=== PATIENT | female | born 1950 | race Caucasian/White ===

== ENCOUNTER → 2018-05-31 08:29 | Outpatient (CLI) | payer OTHER, SELFPAY ==
[2018-05-31 09:05] LABS: Add Manual Diff / Slide Review NO; Basophils Percent Auto 1.3 % (0-2); Eosinophils Percent Auto 2.1 % (2-4); Hematocrit 40.8 % (36-46); Hemoglobin 13.7 g/dL (12.0-16.0); Lymphocytes Percent Auto 40.6 % (25-40); Mean Corpuscular HGB Conc 33.6 % (30-36); Mean Corpuscular Hemoglobin 30.7 PG (26-34); Mean Corpuscular Volume 91.3 fL (80-100); Monocytes Percent Auto 10.8 % (3-14); Neutrophils Absolute Auto 1200 /uL (3000-5900); Neutrophils Percent Auto 45.2 % (50-75); Platelet Count 118 X10^3/uL (150-400); Red Blood Cell Count 4.47 X10^6/uL (4.0-5.2); Red Cell Distribution Width 12.7 % (11.6-14.8); White Blood Cell Count 2.7 X10^3/uL (4.5-11.0)
[2018-05-31 09:39] LABS: Alanine Aminotransferase 48 IU/L (9-52); Albumin 4.1 g/dL (3.5-5.0); Albumin Globulin Ratio 1.3 (1.0-2.8); Alkaline Phosphatase 60 U/L (38-126); Aspartate Aminotransferase 37 IU/L (14-36); BUN Creatinine Ratio 22.9 (6-22); Bilirubin Total 0.6 mg/dL (0.2-1.3); Blood Urea Nitrogen 16 mg/dL (7-17); Calcium 9.4 mg/dL (8.4-10.2); Carbon Dioxide 31 mmol/L (22-32); Chloride 103 mmol/L (98-107); Cholesterol 163 mg/dL (140-199); Estimated Glomerular Filt Rate > 60.0 mL/min (>60); Globulin 3.1 g/dL (1.7-4.1); Glucose 92 mg/dL (80-110); HDL Cholesterol 62 mg/dL (40-60); HEMOLYSIS < 15 (0-50); LDL Cholesterol Calculated 87 mg/dL (<100); Potassium 4.1 mmol/L (3.4-5.1); Sodium 142 mmol/L (137-145); Total Protein 7.2 g/dL (6.3-8.2); Triglycerides 69 mg/dL (35-150)
[2018-05-31 11:03] LABS: TSH w/ Reflex to FT4 2.33 uIU/mL (0.47-4.68)
== END ==
PROVIDERS: Family Provider Internal Medicine; PCP Internal Medicine; Visit Provider Internal Medicine
DX: E03.9 Hypothyroidism, unspecified (principal)
CPT/HCPCS: 36415; 80053; 80061; 84443; 85025

== ENCOUNTER → 2018-06-16 07:21 | Outpatient (CLI) | payer OTHER, SELFPAY ==
[2018-06-18 17:58] LABS: Fecal Immunochemical Test NOT DETECTED
== END ==
PROVIDERS: PCP Internal Medicine; Visit Provider Internal Medicine
DX: Z12.11 Encounter for screening for malignant neoplasm of colon (principal)
CPT/HCPCS: 82274

== ENCOUNTER → 2018-07-18 07:48 | Outpatient (CLI) | payer OTHER, SELFPAY ==
--- NOTE | 2018-07-18 | DI.MG.S_ITS ---
BILATERAL DIGITAL SCREENING MAMMOGRAM 3D/2D WITH CAD: 07/18/2018 CLINICAL: Routine screening. Family history of breast cancer. Comparison is made to exams dated: 07/12/2017 mammogram, 06/29/2016 mammogram, and 05/06/2015 mammogram - . The tissue of both breasts is heterogeneously dense. This may lower the sensitivity of mammography. Current study was also evaluated with a Computer Aided Detection (CAD) system. There is a 0.4 cm oval equal density asymmetry with a circumscribed margin in the left breast middle depth central to the nipple seen on the craniocaudal view only. No other significant masses, calcifications, or other findings are seen in either breast. IMPRESSION: INCOMPLETE: NEEDS ADDITIONAL IMAGING EVALUATION The 0.4 cm oval equal density asymmetry in the left breast is indeterminate. Mediolateral and spot compression views as well as additional views with possible ultrasound are recommended. This exam was interpreted at Station ID: [id number]. NOTE: For mammograms, a report in lay terms will be sent to the patient. Approximately 15% of breast malignancies will not be visualized mammographically. In the management of a palpable breast mass, a negative mammogram must not discourage biopsy of a clinically suspicious lesion. Electronically Signed By: Paco juarez/reji:07/18/2018 16:24:33 letter sent: Additional Imaging Needed ACR BI-RADS Category 0: Incomplete 3340F
== END ==
PROVIDERS: Family Provider Internal Medicine; PCP Internal Medicine; Visit Provider Internal Medicine
DX: Z12.31 Encounter for screening mammogram for malignant neoplasm of breast (principal); Z80.3 Family history of malignant neoplasm of breast
CPT/HCPCS: 77063; 77067

== ENCOUNTER → 2018-08-08 09:56 | Outpatient (CLI) | payer OTHER, SELFPAY ==
--- NOTE | 2018-08-08 09:58 | DI.US.S_ITS ---
ULTRASOUND OF LEFT BREAST: 08/08/2018 CLINICAL: Patient returns for additional imaging over a suspected mass in the left breast. Comparison is made to exams dated: 08/08/2018 mammogram, 07/18/2018 mammogram, and 07/12/2017 mammogram - [facility]. Real-time and Doppler ultrasound of the left breast central to the nipple and along the 6 and 12 o'clock radians were performed. Gardiner scale images of the real-time examination were reviewed. No underlying breast mass or abnormality is identified. No ultrasound correlate for the 0.4 cm oval equal density asymmetry with a circumscribed margin in the left breast central to the nipple on comparison screening and diagnostic mammograms. IMPRESSION: PROBABLY BENIGN - FOLLOW-UP RECOMMENDED No ultrasound correlate for the 0.4 cm oval equal density asymmetry with a circumscribed margin in the left breast central to the nipple on comparison screening and diagnostic mammograms. A follow-up mammogram in 6 months is recommended to demonstrate stability. This exam was interpreted at Station ID: [id number]. Electronically Signed By: Sukhi Patel M.D. ecl/:08/08/2018 18:54:55 letter sent: Followup Recommended Ultrasound BI-RADS: 3 Probably benign
--- NOTE | 2018-08-08 09:58 | DI.MG.S_ITS ---
UNILATERAL LEFT DIGITAL DIAGNOSTIC MAMMOGRAM 3D/2D WITH ADDITIONAL VIEWS: 08/08/2018 CLINICAL: Additional evaluation requested from prior study. Family history of breast cancer. Comparison is made to exams dated: 07/18/2018 mammogram, 07/12/2017 mammogram, and 06/29/2016 mammogram - [facility]. The tissue of the left breast is heterogeneously dense. This may lower the sensitivity of mammography. Previously identified 0.4 cm oval equal density asymmetry with a circumscribed margin in the left breast middle depth central to the nipple on comparison screening mammograms persists with additional views. No other significant masses, calcifications, or other findings are seen in the breast. IMPRESSION: INCOMPLETE: NEEDS ADDITIONAL IMAGING EVALUATION Previously identified 0.4 cm oval equal density asymmetry with a circumscribed margin in the left breast middle depth central to the nipple on comparison screening mammograms persists with additional views. A targeted ultrasound is recommended for further evaluation, and will be performed immediately following this exam. This exam was interpreted at Station ID: [id number]. NOTE: For mammograms, a report in lay terms will be sent to the patient. Approximately 15% of breast malignancies will not be visualized mammographically. In the management of a palpable breast mass, a negative mammogram must not discourage biopsy of a clinically suspicious lesion. Electronically Signed By: Sukhi Patel M.D. ecl/:08/08/2018 18:51:37 letter sent: Additional Imaging Needed ACR BI-RADS Category 0: Incomplete 3340F
== END ==
PROVIDERS: Family Provider Internal Medicine; PCP Internal Medicine; Visit Provider Internal Medicine
DX: R92.8 Other abnormal and inconclusive findings on diagnostic imaging of breast (principal); Z80.3 Family history of malignant neoplasm of breast
CPT/HCPCS: 76642; 77065; G0279

== ENCOUNTER → 2018-09-02 12:36 | Outpatient (CLI) | payer OTHER, SELFPAY ==
[2018-09-02 13:28] LABS: Mean Corpuscular HGB Conc 34.3 % (30-36); Mean Corpuscular Hemoglobin 30.9 PG (26-34); Mean Corpuscular Volume 90.3 fL (80-100); Platelet Count 130 X10^3/uL (150-400); Red Blood Cell Count 4.54 X10^6/uL (4.0-5.2); Red Cell Distribution Width 12.8 % (11.6-14.8)
[2018-09-02 16:19] LABS: Neutrophils Absolute Manual 1880 /uL (3000-5900); Total Cells Counted 100
[2018-09-02 16:20] LABS: Smudge Cells 1+
[2018-09-02 16:21] LABS: RBC Morphology Normal Morphology
[2018-09-04 21:15] LABS: Albumin 4.2 g/dL (3.8-4.8); Alpha 1 Globulin 0.3 g/dL (0.2-0.3); Alpha 2 Globulin 0.6 g/dL (0.5-0.9); Beta 1 Globulin 0.4 g/dL (0.4-0.6); Gamma Globulin 1.1 g/dL (0.8-1.7)
[2018-09-05 16:16] LABS: Albumin 100 %; Protein/ Creatinine Ratio 106 mg/g creat (21-161); Total Urine Protein 4 mg/dL (5-24); Urine Creatinine, Random 38 mg/dL (20-275)
== END ==
PROVIDERS: PCP Internal Medicine; Visit Provider Internal Medicine
DX: D69.6 Thrombocytopenia, unspecified (principal); D70.9 Neutropenia, unspecified
CPT/HCPCS: 36415; 83002; 84155; 84156; 84165; 84166; 85025

== ENCOUNTER → 2018-09-24 15:10 | Oncology outpatient (ONC) | payer OTHER, SELFPAY ==
[2018-09-24 15:53] VITALS: BP 152/73; PULSE 67; RESP 18; TEMP 36.7; O2SAT 100
--- NOTE | 2018-09-24 16:11 | ONC.CONS ---
History of Present Illness - Data of Consult Consult date: 09/24/18 Primary Care Provider: JUVENAL Campos - Consult Narrative Narrative: Keeley Godoy is a 67 year old female who is referred for further evaluation of chronic leukopenia and thrombocytopenia. She reports that she has been feeling quite well. She has no specific complaints today. She has not had any trouble with recurrent infections. She denies any fevers chills or sweats. No unusual bleeding. She has had easy bruising her whole life and this has been stable. She notes her strength and energy level have been good. She denies any dyspnea. No dizziness or lightheadedness. No palpitations. She has never required any transfusion. She has no family history of blood dyscrasias. She has had mild of leukopenia dating back at least as far as 2005. At that time her white count was 2.8 hemoglobin is 14.3 and platelets [id number]. Over the ensuing years, her platelet count has generally run between 120 180. She also has had chronic leukopenia with a count ranging from about 2.5 up to about 4000. She has never had any anemia. She was evaluated by Hematology back in 2011. She underwent extensive evaluation including a bone marrow biopsy that did not show any intrinsic hematologic abnormality. Her current medications include thyroid replacement and estrogen. She takes multiple supplements. For Past medical history is only notable for hypothyroidism. Family history is negative for any blood dyscrasias or cytopenias. She did have an aunts with lung cancer who was a smoker. She does have a family history of breast cancer. There is no other family history of malignancy. Social history: She is recently . She does not smoke. She has about 1 drink per week. 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 CC: Addy Alba MD Home Medications and Allergies Home Medications Medication Instructions Recorded Confirmed Type CALCIUM/MAG/CITRATE/D 1 tab PO .QD #0 06/10/18 06/10/18 History CHOLECALCIFEROL (VITAMIN D) 2,000 iu PO .QD #0 06/10/18 09/23/18 History MULTIVITAMIN (Multiple Vitamins 1 tab PO Q DAY #0 06/10/18 09/23/18 History Daily) [BIOTIN] 1,000 mcg PO .QD #0 06/10/18 09/23/18 History selenium 100 mcg tablet 100 mcg PO DAILY 06/10/18 06/10/18 History vitamin B complex capsule 1 cap PO DAILY 06/10/18 09/23/18 History thyroid (pork) [[place] Thyroid] 30 mg PO QDAY #90 tab 06/12/18 Rx diclofenac sodium 75 mg 75 mg PO BID #90 tab 06/16/18 Rx tablet,delayed release [estriol 1mg ] See Label Instructions .ROUTE 2XW 08/27/18 09/23/18 Rx #30 ea glucosamine sulfate PO 09/23/18 09/23/18 History Allergies Allergy/AdvReac Type Severity Reaction Status Date / Time amoxicillin Allergy Mild GI UPSET Unverified 06/10/18 09:01 Medical History - Medical, Surgical, Family History Medical History: Medical History (Last Reviewed 09/23/18 @ 11:36 by Isaura Huang MD) Foot pain Onset Date: ~2011 Hay fever Hypothyroidism Neutropenia Chicken pox Surgical History: Surgical History (Last Reviewed 09/23/18 @ 11:36 by Isaura Huang MD) Anesthesia Status post colonoscopy Onset Date: ~2004 Family History: Family History (Last Reviewed 09/23/18 @ 11:36 by Isaura Huang MD) Father Suicide Alcoholism Mother Breast cancer Diabetes mellitus, Onset Age: 82 Hypertension Breast cancer metastasized to bone Breast cancer metastasized to lung Osteoporosis Family/Other Breast cancer - Social History Smoking Status: Former smoker (QUIT 12/02/79) Alcohol Intake Frequency: a few times a month Housing: house Household Members: spouse Review of Systems Constitutional: normal activity level, no weight loss Cardiovascular: no chest pain, no palpitations, no dyspnea on exertion Respiratory: no shortness of breath, no exercise intolerance Gastrointestinal: no change in appetite, no abdominal pain Neurological: no paresthesias Hematologic/Lymphatic: no enlarged lymph nodes Exam - Constitutional positive no acute distress, positive average body habitus - Routine HEENT Exam Head: Present: normocephalic, atraumatic Eye: Present: EOMI, PERRL. Absent: conjunctival icterus, scleral injection ENT: Present: mucous membranes moist, oropharynx clear - Routine Neck Exam Present: supple. Absent: lymphadenopathy, thyromegaly - Routine Respiratory Exam Present: Clear to auscultation bilaterally. Absent: rales, wheezes - Routine Cardiovascular Exam Present: RRR, S1, S2. Absent: murmur - Routine Abdominal Exam Present: soft, normoactive bowel sounds. Absent: tenderness, organomegaly, mass - Routine Extremities Exam Absent: cyanosis, clubbing, edema - Routine Back/Spine Exam Back/Spine: Absent: paraspinal tenderness, vertebral tenderness - Routine Skin Exam Present: intact. Absent: petechiae, rash, ecchymosis - Routine Neurological Exam Present: alert, oriented X3. Absent: sensory deficit - Routine Psychiatric Exam Present: normal affect, normal thought process Assessment and Plan (1) Thrombocytopenia Current visit: No Status: Chronic 67-year-old woman with a longstanding history of moderate leukopenia and thrombocytopenia that is been stable for approximately 10 years or more. She has no symptoms attributable to this. She has undergone of fairly extensive evaluation about 5 years ago including a bone marrow biopsy with no abnormalities detected. Since then, there really has not been any significant change in her counts or in her overall health. She is not on any medications likely to cause low blood counts. There is no history of hypersplenism or liver disease. She really has minimal alcohol intake. I think it would be reasonable to check a B12 level as she does follow mostly vegetarian diet. Otherwise, I do not think an extensive evaluation is likely to yield any significant new findings. Will have her return to clinic in about 1 year for follow-up just to monitor her counts.
== END ==
PROVIDERS: Family Provider Internal Medicine; PCP Internal Medicine
DX: D69.6 Thrombocytopenia, unspecified (principal); D72.819 Decreased white blood cell count, unspecified; Z80.3 Family history of malignant neoplasm of breast; Z87.891 Personal history of nicotine dependence
CPT/HCPCS: 99204; 99214

== ENCOUNTER → 2018-09-25 12:34 | Outpatient (CLI) | payer OTHER, SELFPAY ==
[2018-09-25 12:47] LABS: Add Manual Diff / Slide Review NO; Basophils Percent Auto 0.8 % (0-2); Eosinophils Percent Auto 2.6 % (2-4); Hematocrit 41.6 % (36-46); Hemoglobin 13.9 g/dL (12.0-16.0); Lymphocytes Percent Auto 29.4 % (25-40); Mean Corpuscular HGB Conc 33.5 % (30-36); Mean Corpuscular Hemoglobin 30.4 PG (26-34); Mean Corpuscular Volume 90.9 fL (80-100); Monocytes Percent Auto 9.8 % (3-14); Neutrophils Absolute Auto 2000 /uL (3000-5900); Neutrophils Percent Auto 57.4 % (50-75); Platelet Count 132 X10^3/uL (150-400); Red Blood Cell Count 4.57 X10^6/uL (4.0-5.2); White Blood Cell Count 3.5 X10^3/uL (4.5-11.0)
[2018-09-25 14:24] LABS: Folate > 20.0 ng/mL (2.76-20.0); Vitamin B12 868 pg/mL (239-931)
== END ==
PROVIDERS: Family Provider Internal Medicine; PCP Internal Medicine
DX: D72.819 Decreased white blood cell count, unspecified (principal); D69.6 Thrombocytopenia, unspecified
CPT/HCPCS: 36415; 82607; 82746; 85025

== ENCOUNTER → 2019-02-24 08:29 | Outpatient (CLI) | payer MEDICARE, OTHER, SELFPAY ==
--- NOTE | 2019-02-24 08:34 | DI.MG.S_ITS ---
UNILATERAL LEFT DIGITAL DIAGNOSTIC MAMMOGRAM 3D/2D: 02/24/2019 CLINICAL: Patient returns for a 6 month follow up of the left breast. Family history of breast cancer. Comparison is made to exams dated: 08/08/2018 mammogram, 07/18/2018 mammogram, and 07/12/2017 mammogram - [facility]. The tissue of left breast is heterogeneously dense. This may lower the sensitivity of mammography. There is a stable 0.4 cm oval low density asymmetry with an indistinct margin in the left breast middle depth central to the nipple seen on the craniocaudal view only. No other significant masses or calcifications are seen in the breast. IMPRESSION: PROBABLY BENIGN The stable 0.4 cm oval low density asymmetry in the left breast is probably benign. A follow-up in 6 months is recommended. A follow-up mammogram in 6 months is recommended to demonstrate stability. This exam was interpreted at Station ID: [id number]. NOTE: For mammograms, a report in lay terms will be sent to the patient. Approximately 15% of breast malignancies will not be visualized mammographically. In the management of a palpable breast mass, a negative mammogram must not discourage biopsy of a clinically suspicious lesion. Electronically Signed By: Paco juarez/reji:02/24/2019 09:30:51 letter sent: Followup Recommended ACR BI-RADS Category 3: Probably benign 3343F
== END ==
PROVIDERS: PCP Internal Medicine; Visit Provider Internal Medicine
DX: R92.8 Other abnormal and inconclusive findings on diagnostic imaging of breast (principal); N64.89 Other specified disorders of breast; Z80.3 Family history of malignant neoplasm of breast
CPT/HCPCS: 77065; G0279

== ENCOUNTER → 2019-08-31 08:35 | Outpatient (CLI) | payer MEDICARE, OTHER, SELFPAY ==
--- NOTE | 2019-08-31 | DI.MG.S_ITS ---
BILATERAL DIGITAL DIAGNOSTIC MAMMOGRAM 3D/2D SHORT-TERM FOLLOW-UP: 08/31/2019 CLINICAL: Patient returns for a 6 month follow up of the left breast. Due for bilateral imaging. Comparison is made to exams dated: 02/24/2019 mammogram, 08/08/2018 mammogram, 07/18/2018 mammogram, 07/12/2017 mammogram, and 06/29/2016 mammogram - [facility]. The tissue of both breasts is heterogeneously dense. This may lower the sensitivity of mammography. There is a stable benign 0.4 cm oval low density asymmetry with a smooth margin in the left breast middle depth central to the nipple seen on the craniocaudal view only. No other significant masses, calcifications, or other findings are seen in either breast. IMPRESSION: Oval asymmetry in the left breast is stable. There is no mammographic evidence of malignancy. Return to annual mammogram screening schedule is recommended. Findings and recommendations were conveyed to the patient at time of exam. This exam was interpreted at Station ID: [id number]. NOTE: For mammograms, a report in lay terms will be sent to the patient. Approximately 15% of breast malignancies will not be visualized mammographically. In the management of a palpable breast mass, a negative mammogram must not discourage biopsy of a clinically suspicious lesion. Electronically Signed By: Maggy farr/:08/31/2019 09:22:04 letter sent: Normal Exam ACR BI-RADS Category 2: Benign Finding(s) 3342F
== END ==
PROVIDERS: PCP Internal Medicine; Visit Provider Internal Medicine
DX: R92.8 Other abnormal and inconclusive findings on diagnostic imaging of breast (principal); N64.89 Other specified disorders of breast; M85.88 Other specified disorders of bone density and structure, other site; E07.9 Disorder of thyroid, unspecified; Z82.62 Family history of osteoporosis
CPT/HCPCS: 77066; 77080; G0279

== ENCOUNTER 2020-01-29 11:48 | Day surgery (SDC) | payer MEDICARE, OTHER, SELFPAY ==
[2020-01-29] VITALS (7 sets, daily range): BP systolic 106–149; BP diastolic 59–90; PULSE 61–81; RESP 11–28; TEMP 35.7–36.4; O2SAT 94–100; BMI 24.0
--- NOTE | 2020-01-29 08:07 | P.HP_ITS ---
History of Present Illness History of Present Illness Date Patient Seen: 01/29/20 Time Patient Seen: 13:09 Chief complaint: [id number] Narrative: 69 year old female comes in today for consideration of a screening colonoscopy. FIT test negative on 06/16/2018. She has had 2 or 3 lifetime colonoscopies. She did have a colon polyp after her 1st colonoscopy that was followed closely 6 months later showing no regrowth. Her last colonoscopy was in 2004 and was normal, records not available at of dictation. Station. There have been no lower GI symptoms suggesting disease such as change in bowel habits, bleeding, abdominal pain or anemia. There's been no family history of colon cancer or colon polyps. Overall health issues have been stable, including no major cardiac events for at least 6 weeks. PCP: JUVENAL Campos Past medical history: Osteopenia Hay fever Neutropenia Hypothyroidism History of left breast mass Past surgical history: Colonoscopy, 2004 Family history: Father, from suicide at age 58, alcohol substance abuse. Mother at age 86 from breast cancer that metastasized to bone and lung, diabetes mellitus type 2, hypertension, osteoporosis Social history: , retired paralegal assistant. Patient History Family & Social History Social History: household members spouse Tobacco & Substance use: Smoking Status Former smoker alcohol intake current alcohol intake frequency a few times a month Meds Home Medications and Allergies Home Medications Medication Instructions Recorded Confirmed Type CALCIUM/MAG/CITRATE/D 1 tab PO .QD #0 06/10/18 01/29/20 History CHOLECALCIFEROL (VITAMIN D) 2,000 iu PO .QD #0 06/10/18 01/29/20 History MULTIVITAMIN (Multiple Vitamins 1 tab PO Q DAY #0 06/10/18 01/29/20 History Daily) [BIOTIN] 1,000 mcg PO .QD #0 06/10/18 01/29/20 History selenium 100 mcg tablet 100 mcg PO DAILY 06/10/18 01/29/20 History vitamin B complex 1 cap PO DAILY 06/10/18 01/29/20 History thyroid (pork) [[place] Thyroid] 30 mg PO QDAY #90 tab 06/12/18 01/29/20 Rx diclofenac sodium 75 mg 75 mg PO BID #90 tab 06/16/18 01/29/20 Rx tablet,delayed release glucosamine sulfate PO 09/23/18 09/23/18 History Allergies Allergy/AdvReac Type Severity Reaction Status Date / Time amoxicillin Allergy Mild GI UPSET Unverified 06/10/18 09:01 Review of Systems Review of Systems ROS: Yes All systems reviewed with the patient and are negative except as otherwise documented Exam Narrative Exam Narrative: GENERAL: Alert and oriented, appearing stated age and in no acute distress. HEENT: Head normocephalic/atraumatic. LUNGS: Clear to ausculation bilaterally, no wheezes, rhonchi or rales. CV: Normal S1 and S2 with regular rate and rhythm, no audible murmurs, rubs or gallops. ABDOMEN: Soft, non-tender, non-distended, no organomegaly. Positive bowel sounds. EXTREMITIES: No clubbing, cyanosis, or edema. NEURO: Cranial nerves II through XII grossly intact, no focal deficits. PSYCH: Alert and oriented x 3. SKIN: No concerning lesions. Assessment & Plan Assessment & Plan narrative: 1. History of colon polyps 2. Screening for colon cancer Plan for colonoscopy. The nature and character of the procedure as well as anticipated results were discussed. The possibility of not completing the procedure was also discussed. Possible complications including aspiration pneumonia, bleeding, perforation and reaction to medications either for sedation or preparation and missed lesions were discussed. Questions were answered and proceeding to the colonoscopy was elected. Informed consent signed. I sincerely appreciate the referral allowing me to participate in this patient's care. Please contact me with any questions or concerns.
--- NOTE | 2020-01-29 08:16 | PM.OP.ENDO ---
Operative Date/Time/Diagnoses Date of procedure: 01/29/20 Time of procedure: 13:15 Pre-op diagnosis: 1. History of colon polyps 2. Screening for colon cancer Post-op diagnosis: other (Normal sigmoidoscopy) Procedure & Clinicians Study performed: Sigmoidoscopy Same procedure as scheduled: No (Colonoscopy converted to sigmoidoscopy secondary to tortuosity of colon) Indications: 1. History of colon polyps 2. Screening for colon cancer Surgeon: Christin Mercado Procedure Notes SCOAP/Timeout: 13:15 Procedure in detail: ENDOSCOPIST: Christin Mercado MD Sedation RN: Sloan Chris RN Sedation start time: 1:15 p.m. Sedation end time: 1:50 p.m. PROCEDURE: Sigmoidoscopy INDICATIONS: 1. History of colon polyps 2. Screening for colon cancer MEDICATION: Levsin 0.125 mg sublingual, incremental doses of Versed and fentanyl until appropriate level sedation achieved. ASA CLASS: 2 COMPLICATIONS: None. EXTENT OF PROCEDURE: Splenic flexure. QUALITY OF PREP: Good with portions of liquid stool. PROCEDURE: Prior to insertion of the colonoscope, a digital rectal examination was accomplished with circumferential palpation of the distal rectal mucosa without significant findings being noted. The high-definition adult colonoscope was passed into the rectum in the usual fashion and advanced over to the splenic flexure without difficulty. At the splenic flexure, there was a tight junction that was unable to be intubated. Patient was transitioned through several position changes from supine to right lateral decubitus and back again to left lateral decubitus, scope was not able to be advanced. Gentle pressure was applied to the abdomen and the scope was still not able to be advanced. Adult colonoscope was then removed and replaced with a pediatric colonoscope, again the pediatric colonoscope could not advanced past the splenic flexure; procedure converted to sigmoidoscopy. DESCENDING COLON: Normal no polyps, diverticula or other abnormalities. SIGMOID COLON: Normal no polyps, diverticula or other abnormalities. RECTUM: Normal. J maneuver was produced. There was no significant perianal disease. The J maneuver was broken. The remainder of the rectum was inspected and there was no external hemorrhoid disease. The scope was withdrawn. IMPRESSION: 1. Normal sigmoidoscopy PLAN: 1. Patient did reassuringly have a negative FIT test prior to this procedure, may proceed with a 5 year screening interval or elect to proceed with CT colonography in place of an endoscopic exam. The possibility of a missed lesion including a malignancy has been discussed with the patient previously. Potential alarm symptoms have been discussed and should be reported immediately. Sedation minutes: 35 Specimen(s): none sent Complications: none Post-procedure Follow up: as needed Disposition: PACU
[2020-01-29] MEDS: HYOSCYAMINE 0.125 MG TABLET PO (12:38)
[2020-01-29] MEDS: SODIUM CHLORIDE 0.9% 1,000 ML 200 ML IV ×2 (12:41→13:46)
[2020-01-29] MEDS: MIDAZOLAM 5 MG/5 ML VIAL IV (13:56)
[2020-01-29] MEDS: fentaNYL 250 MCG/5 ML INJ IV (13:57)
== END 2020-01-29 15:22 | disposition home or self-care (01) ==
PROVIDERS: PCP Internal Medicine; Referring Provider Internal Medicine; Visit Provider Student in an Organized Health Care Education/Training Program
PROC: 0DJD8ZZ Inspection of Lower Intestinal Tract, Via Natural or Artificial Opening Endoscopic (ICD-10-PCS; CPT 45378; principal; 2020-01-29 13:00)
DX: Z12.11 Encounter for screening for malignant neoplasm of colon (principal); Z86.010 Personal history of colon polyps
CPT/HCPCS: G0104; J2250; J3010

== ENCOUNTER → 2020-10-21 10:05 | Outpatient (CLI) | payer MEDICARE, OTHER, SELFPAY ==
--- NOTE | 2020-10-21 | DI.MG.S_ITS ---
BILATERAL DIGITAL SCREENING MAMMOGRAM 3D/2D WITH CAD: 10/21/2020 CLINICAL: Routine screening. Family history of breast cancer. Comparison is made to exams dated: 08/31/2019 mammogram, 07/18/2018 mammogram, 07/12/2017 mammogram, 05/20/2015 mammogram, and 04/30/2014 mammogram - [facility]. The tissue of both breasts is heterogeneously dense. This may lower the sensitivity of mammography. Current study was also evaluated with a Computer Aided Detection (CAD) system. There is an irregular asymmetry with an indistinct margin in the right breast middle depth inferior region seen on the mediolateral oblique view only. Finding is seen only on tomography. This is more prominent. No other significant masses, calcifications, or other findings are seen in either breast. IMPRESSION: INCOMPLETE: NEEDS ADDITIONAL IMAGING EVALUATION The irregular asymmetry in the right breast is indeterminate. Additional views with possible ultrasound are recommended. This exam was interpreted at Station ID: [id number]. NOTE: For mammograms, a report in lay terms will be sent to the patient. Approximately 15% of breast malignancies will not be visualized mammographically. In the management of a palpable breast mass, a negative mammogram must not discourage biopsy of a clinically suspicious lesion. Electronically Signed By: Maggy farr/reji:10/21/2020 12:42:31 letter sent: Additional Imaging Needed ACR BI-RADS Category 0: Incomplete 3340F
== END ==
PROVIDERS: PCP Internal Medicine; Referring Provider Internal Medicine; Visit Provider Internal Medicine
DX: Z12.31 Encounter for screening mammogram for malignant neoplasm of breast (principal)
CPT/HCPCS: 77063; 77067

== ENCOUNTER → 2020-11-15 13:57 | Outpatient (CLI) | payer MEDICARE, OTHER, SELFPAY ==
--- NOTE | 2020-11-15 | DI.MG.S_ITS ---
UNILATERAL RIGHT DIGITAL DIAGNOSTIC MAMMOGRAM 3D/2D WITH ADDITIONAL VIEWS: 11/15/2020 CLINICAL: Additional evaluation requested from prior study. Comparison is made to exams dated: 10/21/2020 mammogram, 08/31/2019 mammogram, and 07/18/2018 mammogram - [facility]. The tissue of right breast is heterogeneously dense. This may lower the sensitivity of mammography. The benign irregular asymmetry with an indistinct margin in the right breast middle depth inferior region seen on the mediolateral oblique view only is no longer seen. This is not seen in additional views. No other significant masses or calcifications are seen in the breast. IMPRESSION: BENIGN There is no mammographic evidence of malignancy. A 1 year screening mammogram is recommended. This exam was interpreted at Station ID: [id number]. NOTE: For mammograms, a report in lay terms will be sent to the patient. Approximately 15% of breast malignancies will not be visualized mammographically. In the management of a palpable breast mass, a negative mammogram must not discourage biopsy of a clinically suspicious lesion. Electronically Signed By: Brent Dailey acr/:11/15/2020 14:27:08 letter sent: Normal Exam ACR BI-RADS Category 2: Benign Finding(s) 3342F
== END ==
PROVIDERS: PCP Internal Medicine; Referring Provider Internal Medicine; Visit Provider Internal Medicine
DX: R92.8 Other abnormal and inconclusive findings on diagnostic imaging of breast (principal)
CPT/HCPCS: 77065; G0279

== ENCOUNTER 2021-06-22 12:15 | Outpatient (RCR) | payer MEDICARE, OTHER, SELFPAY ==
--- NOTE | 2021-04-06 13:49 | PT.OIE ---
Current Diagnoses Pain in left shoulder (04/06/21) Past Medical History (Last Reviewed 09/23/18 @ 11:36 by Isaura Huang MD) Chicken pox Foot pain (~2011) Hay fever Hypothyroidism Neutropenia Past Surgical History (Last Reviewed 09/23/18 @ 11:36 by Isaura Huang MD) Anesthesia Status post colonoscopy (~2004) Visit Care Team Role Provider Type JUVENAL Campos Attending Provider Advanced Licensed Veterinary Technician Family Provider Primary Care Provider Referring Provider Specialty: Family Practice Address: [address] [place] [address] [place], [facility] Email: [email or web address] Initial Evaluation PT-OP-A Visit Information Start: 03/31/21 13:36 Freq: Status: Active Protocol: Document 04/06/21 10:33 MB (Rec: 04/06/21 10:48 MB [id number]) Out-Patient Physical Therapy Visit Information Visit Information Visit Type Initial Evaluation Visit Note Medicare and for Life Visit Start Time 10:33 Visit Stop Time 11:08 Total Visit Minutes 35 Visit Number 1 Evaluation Information Evaluation Date 04/06/21 Precautions Precautions Pt is going through a time grief with recent lost of , another loved one and dog since the fall PT-OP-B Current Condition Start: 03/31/21 13:36 Freq: Status: Active Protocol: Document 04/06/21 10:33 MB (Rec: 04/06/21 10:48 MB [id number]) Current Condition History of Current Condition Onset Date 2.5 months ago Current Complaints Left arm pain when moving it certain ways and difficulty using it History of Current Condition Pt was reading in bed with her cat under the crook of her left arm and she went to lift her left arm and got sharp pain in her upper arm. Since then, it is about the same. She has been taking advil. She reports she is fine unless she does something it doesn' t like. Reaching up and reaching across with her left arm is difficult. She gets shooting pain. Reaching out and back is also troublesome. She is right handed. She has been going through a lot of grief after spouse and dog and another loved one's within several months of each other. She usually feels tension in her neck. She has trouble with the gardening and using hedge clippers and she duncan through. Pt cannot fasten her bra behind her back. The [facility] for her passing is 04/15/21 and she is just wanting to get through it. She was doing osteoporosis exercises before the left shoulder bothered her and she is asking about these. Pt reports 2/10 left shoulder pain. Prior Treatments and Tests Pt had PT in the past for plantar fasciitis and it went well, she responded well to massage therapy in the past, PT for her neck and back. She had a C3-4 issue and it got better with PT. Treatment Goals Patient/Caregiver Goals To improve left shoulder range and pain PT-OP-C Subjective Start: 03/31/21 13:36 Freq: Status: Active Protocol: Document 04/06/21 10:33 MB (Rec: 04/06/21 10:48 MB [id number]) OP-PT Subjective Patient Comments Patient Comments See history of current condition Patient Questionnaires Quick Dash- Upper Extremity Quick Dash UE Score 16 Quick Dash UE Impairment 1 to 19% Impaired (Score 1-19) PT-OP-J Posture/Palpation/Skin Start: 03/31/21 13:36 Freq: Status: Active Protocol: Document 04/06/21 10:33 MB (Rec: 04/06/21 13:47 MB [id number]) Posture Evaluation Comments Posture Comments Standing posture: Forward head and rounded shoulders, Dowager's hump, increased lumbar lordosis, anterior tilt pelvis, left shoulder higher than the right, right shoulder blade lower than the left, left iliac crest higher than the right, B knee valgus, supination right ankle and pronation left ankle Palpation: increased tension left upper traps compared to the right PT-OP-K Range of Motion Start: 03/31/21 13:36 Freq: Status: Active Protocol: Document 04/06/21 10:33 MB (Rec: 04/06/21 13:47 MB [id number]) Shoulder Goniometric Range of Motion Shoulder Left Shoulder ROM WFL No Testing Position Standing Flexion 133 Abduction 112 Comments Supine ER and IR with shoulder in 90/90: 15 deg both and pt reports pain in upper arm, capsular pattern Right Shoulder ROM WFL Yes Testing Position Standing Flexion 161 Abduction 145 Comments Supine ER and IR with shoulder in 90/90 is WNLs Elbow/Forearm Range of Motion Elbow/Forearm ROM Limitations Comments B elbows, wrists and hands WNLs PT-OP-M Strength Start: 03/31/21 13:36 Freq: Status: Active Protocol: Document 04/06/21 10:33 MB (Rec: 04/06/21 13:47 MB [id number]) Shoulder Strength Shoulder Manual Muscle Testing Left Comments MMT deferred d/t painful and limited AROM Right Flexion 5 Normal Abduction (C5) 5 Normal External Rotation 5 Normal Internal Rotation 5 Normal Elbow/Forearm Strength Elbow and Forearm Manual Muscle Testing Left Flexion (C6) 5 Normal Extension (C7) 5 Normal Pronation 4 Good Supination 4 Good Right Flexion (C6) 5 Normal Extension (C7) 5 Normal Pronation 4 Good Supination 4 Good Wrist Strength Wrist Manual Muscle Testing Left Flexion (C7) 5 Normal Extension (C6) 5 Normal Right Flexion (C7) 5 Normal Extension (C6) 5 Normal PT-OP-Q Treatments Start: 03/31/21 13:36 Freq: Status: Active Protocol: Document 04/06/21 10:33 MB (Rec: 04/06/21 13:32 MB [id number]) Self-Care/Home Management Treatment Education Patient Education Body Mechanics,Posture Other Education Proper sleeping position with towel roll support in pillow case, pillow under kneees in supine and if side lying, pillow between arms and legs, need to keep left arm more down and not in flexed ER at night d/t tightening of capsule and muscles, use of ice and heat, making sure she rolls over at night, even if it disturbs her two cats in the bed, PT's initial impression of adhesive capsulitis. PT and pt review her exercises she has been doing and trying from the [facility] and PT ed her to stop any exercises that increase strain and pain in her shoulders at this time and to stop UE exercises except for wall push ups to tolerance . PT-OP-T Assessment and Plan Start: 03/31/21 13:36 Freq: Status: Active Protocol: Document 04/06/21 10:33 MB (Rec: 04/06/21 13:47 MB [id number]) Physical Therapy Assessment Rehab Potential Rehabilitation Potential Good Evaluation Complexity Number of Personal Factors/Comorbidities 1-2 Number of Body Systems Impaired 1-2 Clinical Presentation at Evaluation Stable Impairments Impairments Activity Tolerance,Functional Activities,Functional Mobility ,Pain,Posture,ROM,Soft Tissue Mobility,Strength Other Impairments Personal factors include grief process and stress after 's passing and upcoming graveside service (many months after his passing), pt lives alone. Body systems affected include psychosocial stressors on her body, musculoskeletal and neuromuscular. Her clinical presentation is currently stable. Goals 4 Intermediate Goal (LTG) Pt will perform progressive HEP with I including ROM, postural, flexibility and strengthening exercises to improve function and pain by06/06/21. LTG Duration 8 weeks 3 Machining Manager Goal (LTG) Pt will be able to don bra behind her back to improve I with ADLs by 06/06/21. LTG Duration 8 weeks 2 Machining Manager Goal (LTG) Pt will present with improved AROM left shoulder flexion and abduction equal to right shoulder to improve ability to perform overhead tasks by 06/06. LTG Duration 8 weeks 1 Intermediate Goal (LTG) Pt will present with an improved QuickDASH score reflecting no more than 10% impairment to allow return to normal ADLs and IADLs by . LTG Duration 8 weeks Assessment Summary Assessment Pt is a 70 y/o female presenting with decreased active and passive ROM, strength and functional use of her left shoulder. She denies an injury and reports pain started when going to lift her arm up off her cat in the bed . She has been under increased stress and grief after loss of her and her dog. Given no injury and that she is a post-menopausal female how has had increased stress over several months and per physical evaluation today , PT favors adhesive capsulitis and she will benefit from PT to improve range, flexibility, posture and strength. Manual intervention will be helpful as well. Anticipate at least a 2 month rehab course. Physical Therapy Plan Frequency and Duration Frequency of Treatment 2x/Week Duration of Treatment 8 weeks Plan of Care Start Date 04/06/21 Plan of Care End Date 06/06/21 Therapeutic Interventions Therapeutic Interventions Balance Training,Canalithic Repositioning,Coordination Training,Home Exercise Program ,Joint Mobilizations,Manual Therapy,Neuromuscular Re- education,Patient/Caregiver Education,Self-Care/Home Management,Sensory Integration ,Soft Tissue Mobilization, Taping,Therapeutic Activities, Therapeutic Exercises Modalities Cold Pack/Ice Massage,Hot Packs Next Visit Focus/Plan Next Note Type Treatment Note Next Visit Plan Initiate scapular retraction/ thoracic lift, racquet ball STM, cane exercises [place] Protocol in future treatments
--- NOTE | 2021-04-06 13:49 | PT.OPPOC ---
Physical, Occupational & Speech Therapy At [facility] Current Diagnoses Pain in left shoulder (04/06/21) Visit Care Team Role Provider Type JUVENAL Campos Attending Provider Advanced Trial Paralegal Family Provider Primary Care Provider Referring Provider Specialty: Family Practice Address: [address] [place] [address] [place], [address] Email: Plan Of Care PT-OP-T Assessment and Plan Start: 03/31/21 13:36 Freq: Status: Active Protocol: Document 04/06/21 10:33 MB (Rec: 04/06/21 13:47 MB [id number]) Physical Therapy Assessment Rehab Potential Rehabilitation Potential Good Evaluation Complexity Number of Personal Factors/Comorbidities 1-2 Number of Body Systems Impaired 1-2 Clinical Presentation at Evaluation Stable Impairments Impairments Activity Tolerance,Functional Activities,Functional Mobility ,Pain,Posture,ROM,Soft Tissue Mobility,Strength Other Impairments Personal factors include grief process and stress after 's passing and upcoming graveside service (many months after his passing), pt lives alone. Body systems affected include psychosocial stressors on her body, musculoskeletal and neuromuscular. Her clinical presentation is currently stable. Goals 4 Interior Horticulturist Goal (LTG) Pt will perform progressive HEP with I including ROM, postural, flexibility and strengthening exercises to improve function and pain by06/06/21. LTG Duration 8 weeks 3 Interior Horticulturist Goal (LTG) Pt will be able to don bra behind her back to improve I with ADLs by 06/06/21. LTG Duration 8 weeks 2 Senior Living Goal (LTG) Pt will present with improved AROM left shoulder flexion and abduction equal to right shoulder to improve ability to perform overhead tasks by 06/06. LTG Duration 8 weeks 1 Interior Horticulturist Goal (LTG) Pt will present with an improved QuickDASH score reflecting no more than 10% impairment to allow return to normal ADLs and IADLs by . LTG Duration 8 weeks Assessment Summary Assessment Pt is a 70 y/o female presenting with decreased active and passive ROM, strength and functional use of her left shoulder. She denies an injury and reports pain started when going to lift her arm up off her cat in the bed . She has been under increased stress and grief after loss of her and her dog. Given no injury and that she is a post-menopausal female how has had increased stress over several months and per physical evaluation today , PT favors adhesive capsulitis and she will benefit from PT to improve range, flexibility, posture and strength. Manual intervention will be helpful as well. Anticipate at least a 2 month rehab course. Physical Therapy Plan Frequency and Duration Frequency of Treatment 2x/Week Duration of Treatment 8 weeks Plan of Care Start Date 04/06/21 Plan of Care End Date 06/06/21 Therapeutic Interventions Therapeutic Interventions Balance Training,Canalithic Repositioning,Coordination Training,Home Exercise Program ,Joint Mobilizations,Manual Therapy,Neuromuscular Re- education,Patient/Caregiver Education,Self-Care/Home Management,Sensory Integration ,Soft Tissue Mobilization, Taping,Therapeutic Activities, Therapeutic Exercises Modalities Cold Pack/Ice Massage,Hot Packs Next Visit Focus/Plan Next Note Type Treatment Note Next Visit Plan Initiate scapular retraction/ thoracic lift, racquet ball STM, cane exercises Gable Protocol in future treatments Plan of Care Dates Plan of Care Start Date 04/06/21 Plan of Care End Date 06/06/21 Electronically Signed by: Jennifer Arias PT 04/06/21 [id number] Please Sign and Return: I have reviewed this Plan of Care and certify that the skilled therapy services above are required to meet the patient?s needs. Physician Signature Date Printed Name and Credentials Clinical Instructor Signature Printed Name and Credentials
--- NOTE | 2021-04-24 09:13 | PT.OTN ---
Current Diagnoses Pain in left shoulder (04/24/21) Physical Therapy Treatment Note PT-OP-A Visit Information Start: 03/31/21 13:36 Freq: Status: Active Protocol: Document 04/24/21 08:16 MB (Rec: 04/24/21 09:11 MB [id number]) Out-Patient Physical Therapy Visit Information Visit Information Visit Type Treatment Note Visit Note Medicare and for Life Visit Start Time 08:16 Visit Stop Time 09:10 Total Visit Minutes 54 Visit Number 2 Precautions Precautions Pt is going through a time grief with recent lost of , another loved one and dog since the fall PT-OP-B Current Condition Start: 03/31/21 13:36 Freq: Status: Active Protocol: Document 04/06/21 10:33 MB (Rec: 04/06/21 10:48 MB [id number]) Current Condition History of Current Condition Onset Date 2.5 months ago Current Complaints Left arm pain when moving it certain ways and difficulty using it History of Current Condition Pt was reading in bed with her cat under the crook of her left arm and she went to lift her left arm and got sharp pain in her upper arm. Since then, it is about the same. She has been taking advil. She reports she is fine unless she does something it doesn' t like. Reaching up and reaching across with her left arm is difficult. She gets shooting pain. Reaching out and back is also troublesome. She is right handed. She has been going through a lot of grief after spouse and dog and another loved one's within several months of each other. She usually feels tension in her neck. She has trouble with the gardening and using hedge clippers and she duncan through. Pt cannot fasten her bra behind her back. The [facility] passing is 04/15/21 and she is just wanting to get through it. She was doing osteoporosis exercises before the left shoulder bothered her and she is asking about these. Pt reports 2/10 left shoulder pain. Prior Treatments and Tests Pt had PT in the past for plantar fasciitis and it went well, she responded well to massage therapy in the past, PT for her neck and back. She had a C3-4 issue and it got better with PT. Treatment Goals Patient/Caregiver Goals To improve left shoulder range and pain PT-OP-C Subjective Start: 03/31/21 13:36 Freq: Status: Active Protocol: Document 04/24/21 08:16 MB (Rec: 04/24/21 09:13 MB [id number]) OP-PT Subjective Patient Comments Patient Comments Pt states that her right shoulder is the same or a little better. She is using towel roll support and heating her neck as needed. PT-OP-J Posture/Palpation/Skin Start: 03/31/21 13:36 Freq: Status: Active Protocol: Document 04/06/21 10:33 MB (Rec: 04/06/21 13:47 MB [id number]) Posture Evaluation Comments Posture Comments Standing posture: Forward head and rounded shoulders, Dowager's hump, increased lumbar lordosis, anterior tilt pelvis, left shoulder higher than the right, right shoulder blade lower than the left, left iliac crest higher than the right, B knee valgus, supination right ankle and pronation left ankle Palpation: increased tension left upper traps compared to the right PT-OP-K Range of Motion Start: 03/31/21 13:36 Freq: Status: Active Protocol: Document 04/06/21 10:33 MB (Rec: 04/06/21 13:47 MB [id number]) Shoulder Goniometric Range of Motion Shoulder Left Shoulder ROM WFL No Testing Position Standing Flexion 133 Abduction 112 Comments Supine ER and IR with shoulder in 90/90: 15 deg both and pt reports pain in upper arm, capsular pattern Right Shoulder ROM WFL Yes Testing Position Standing Flexion 161 Abduction 145 Comments Supine ER and IR with shoulder in 90/90 is WNLs Elbow/Forearm Range of Motion Elbow/Forearm ROM Limitations Comments B elbows, wrists and hands WNLs PT-OP-M Strength Start: 03/31/21 13:36 Freq: Status: Active Protocol: Document 04/06/21 10:33 MB (Rec: 04/06/21 13:47 MB [id number]) Shoulder Strength Shoulder Manual Muscle Testing Left Comments MMT deferred d/t painful and limited AROM Right Flexion 5 Normal Abduction (C5) 5 Normal External Rotation 5 Normal Internal Rotation 5 Normal Elbow/Forearm Strength Elbow and Forearm Manual Muscle Testing Left Flexion (C6) 5 Normal Extension (C7) 5 Normal Pronation 4 Good Supination 4 Good Right Flexion (C6) 5 Normal Extension (C7) 5 Normal Pronation 4 Good Supination 4 Good Wrist Strength Wrist Manual Muscle Testing Left Flexion (C7) 5 Normal Extension (C6) 5 Normal Right Flexion (C7) 5 Normal Extension (C6) 5 Normal PT-OP-Q Treatments Start: 03/31/21 13:36 Freq: Status: Active Protocol: Document 04/24/21 08:16 MB (Rec: 04/24/21 09:11 MB [id number]) Therapeutic Exercises Standing Exercises Scapular retraction and thoracic lift Comments Pt standing against the wall Racquet ball STM Standing Exercise Name Intrascapular STM, MWM upper traps and infraspinatus Side left Comments Education, practice all exercises Manual Therapy Treatment Other Other Manual Treatments Lafe Protocol left shoulder. AROM left shoulder flexion 131 and abduction 129 before treatment. AROM left shoulder after Lafe Protocol: flexion 158 deg and abduction 160 deg. Posterior capsule stretch with PA mobs at the joint line. PT-OP-T Assessment and Plan Start: 03/31/21 13:36 Freq: Status: Active Protocol: Document 04/24/21 08:16 MB (Rec: 04/24/21 09:11 MB [id number]) Physical Therapy Assessment Rehab Potential Rehabilitation Potential Good Evaluation Complexity Number of Personal Factors/Comorbidities 1-2 Number of Body Systems Impaired 1-2 Clinical Presentation at Evaluation Stable Impairments Impairments Activity Tolerance,Functional Activities,Functional Mobility ,Pain,Posture,ROM,Soft Tissue Mobility,Strength Other Impairments Personal factors include grief process and stress after 's passing and upcoming graveside service (many months after his passing), pt lives alone. Body systems affected include psychosocial stressors on her body, musculoskeletal and neuromuscular. Her clinical presentation is currently stable. Goals 4 Halfway Goal (LTG) Pt will perform progressive HEP with I including ROM, postural, flexibility and strengthening exercises to improve function and pain by06/06/21. LTG Duration 8 weeks 3 Painter Railroad Car Goal (LTG) Pt will be able to don bra behind her back to improve I with ADLs by 06/06/21. LTG Duration 8 weeks 2 Painter Railroad Car Goal (LTG) Pt will present with improved AROM left shoulder flexion and abduction equal to right shoulder to improve ability to perform overhead tasks by 06/06. LTG Duration 8 weeks 1 Painter Railroad Car Goal (LTG) Pt will present with an improved QuickDASH score reflecting no more than 10% impairment to allow return to normal ADLs and IADLs by . LTG Duration 8 weeks Assessment Summary Assessment Initiated racquet ball STM and MWM and postural training today and pt responds well initially. Also initiated Lafe Protocol and pt tolerates well and her AROM left shoulder flexion and abduction is much better after treatment. Physical Therapy Plan Frequency and Duration Frequency of Treatment 2x/Week Duration of Treatment 8 weeks Plan of Care Start Date 04/06/21 Plan of Care End Date 06/06/21 Therapeutic Interventions Therapeutic Interventions Balance Training,Canalithic Repositioning,Coordination Training,Home Exercise Program ,Joint Mobilizations,Manual Therapy,Neuromuscular Re- education,Patient/Caregiver Education,Self-Care/Home Management,Sensory Integration ,Soft Tissue Mobilization, Taping,Therapeutic Activities, Therapeutic Exercises Modalities Cold Pack/Ice Massage,Hot Packs Next Visit Focus/Plan Next Note Type Treatment Note Next Visit Plan Cane exercises, pect stretch with hands behind head and rib breathing, self mobs over table (abduction) vs wall crawl and pillow slide Lafe Protocol
--- NOTE | 2021-04-26 09:46 | PT.OTN ---
Current Diagnoses Pain in left shoulder (04/26/21) Physical Therapy Treatment Note PT-OP-A Visit Information Start: 03/31/21 13:36 Freq: Status: Active Protocol: Document 04/26/21 09:02 MB (Rec: 04/26/21 09:29 MB [id number]) Out-Patient Physical Therapy Visit Information Visit Information Visit Type Treatment Note Visit Note Medicare and for Life Visit Start Time 09:02 Visit Stop Time 09:45 Total Visit Minutes 43 Visit Number 3 Precautions Precautions Pt going through intense time of grief PT-OP-B Current Condition Start: 03/31/21 13:36 Freq: Status: Active Protocol: Document 04/06/21 10:33 MB (Rec: 04/06/21 10:48 MB [id number]) Current Condition History of Current Condition Onset Date 2.5 months ago Current Complaints Left arm pain when moving it certain ways and difficulty using it History of Current Condition Pt was reading in bed with her cat under the crook of her left arm and she went to lift her left arm and got sharp pain in her upper arm. Since then, it is about the same. She has been taking advil. She reports she is fine unless she does something it doesn' t like. Reaching up and reaching across with her left arm is difficult. She gets shooting pain. Reaching out and back is also troublesome. She is right handed. She has been going through a lot of grief after spouse and dog and another loved one's within several months of each other. She usually feels tension in her neck. She has trouble with the gardening and using hedge clippers and she duncan through. Pt cannot fasten her bra behind her back. The [facility] passing is 04/15/21 and she is just wanting to get through it. She was doing osteoporosis exercises before the left shoulder bothered her and she is asking about these. Pt reports 2/10 left shoulder pain. Prior Treatments and Tests Pt had PT in the past for plantar fasciitis and it went well, she responded well to massage therapy in the past, PT for her neck and back. She had a C3-4 issue and it got better with PT. Treatment Goals Patient/Caregiver Goals To improve left shoulder range and pain PT-OP-C Subjective Start: 03/31/21 13:36 Freq: Status: Active Protocol: Document 04/26/21 09:02 MB (Rec: 04/26/21 09:29 MB [id number]) OP-PT Subjective Patient Comments Patient Comments Pt states that she felt a little bruisy from the racquet ball. The manual work was helpful for her shoulder ROM. PT-OP-J Posture/Palpation/Skin Start: 03/31/21 13:36 Freq: Status: Active Protocol: Document 04/06/21 10:33 MB (Rec: 04/06/21 13:47 MB [id number]) Posture Evaluation Comments Posture Comments Standing posture: Forward head and rounded shoulders, Dowager's hump, increased lumbar lordosis, anterior tilt pelvis, left shoulder higher than the right, right shoulder blade lower than the left, left iliac crest higher than the right, B knee valgus, supination right ankle and pronation left ankle Palpation: increased tension left upper traps compared to the right PT-OP-K Range of Motion Start: 03/31/21 13:36 Freq: Status: Active Protocol: Document 04/06/21 10:33 MB (Rec: 04/06/21 13:47 MB [id number]) Shoulder Goniometric Range of Motion Shoulder Left Shoulder ROM WFL No Testing Position Standing Flexion 133 Abduction 112 Comments Supine ER and IR with shoulder in 90/90: 15 deg both and pt reports pain in upper arm, capsular pattern Right Shoulder ROM WFL Yes Testing Position Standing Flexion 161 Abduction 145 Comments Supine ER and IR with shoulder in 90/90 is WNLs Elbow/Forearm Range of Motion Elbow/Forearm ROM Limitations Comments B elbows, wrists and hands WNLs PT-OP-M Strength Start: 03/31/21 13:36 Freq: Status: Active Protocol: Document 04/06/21 10:33 MB (Rec: 04/06/21 13:47 MB [id number]) Shoulder Strength Shoulder Manual Muscle Testing Left Comments MMT deferred d/t painful and limited AROM Right Flexion 5 Normal Abduction (C5) 5 Normal External Rotation 5 Normal Internal Rotation 5 Normal Elbow/Forearm Strength Elbow and Forearm Manual Muscle Testing Left Flexion (C6) 5 Normal Extension (C7) 5 Normal Pronation 4 Good Supination 4 Good Right Flexion (C6) 5 Normal Extension (C7) 5 Normal Pronation 4 Good Supination 4 Good Wrist Strength Wrist Manual Muscle Testing Left Flexion (C7) 5 Normal Extension (C6) 5 Normal Right Flexion (C7) 5 Normal Extension (C6) 5 Normal PT-OP-Q Treatments Start: 03/31/21 13:36 Freq: Status: Active Protocol: Document 04/26/21 09:02 MB (Rec: 04/26/21 09:29 MB [id number]) Therapeutic Exercises Supine Exercises Cane exercises abduction and flexion Side left Comments 10 reps x2 both Sidelying Exercises Open book with elbows bent and rib breathing Side bilateral Comments 3 reps slowly, prolonged hold with reading Manual Therapy Treatment Other Other Manual Treatments [place] Protocol left shoulder with improved active left shoulder flexion and abduction after treatment. PT-OP-T Assessment and Plan Start: 03/31/21 13:36 Freq: Status: Active Protocol: Document 04/26/21 09:02 MB (Rec: 04/26/21 09:29 MB [id number]) Physical Therapy Assessment Rehab Potential Rehabilitation Potential Good Evaluation Complexity Number of Personal Factors/Comorbidities 1-2 Number of Body Systems Impaired 1-2 Clinical Presentation at Evaluation Stable Impairments Impairments Activity Tolerance,Functional Activities,Functional Mobility ,Pain,Posture,ROM,Soft Tissue Mobility,Strength Other Impairments Personal factors include grief process and stress after 's passing and upcoming graveside service (many months after his passing), pt lives alone. Body systems affected include psychosocial stressors on her body, musculoskeletal and neuromuscular. Her clinical presentation is currently stable. Goals 4 [employer] Chocolate Dipper Goal (LTG) Pt will perform progressive HEP with I including ROM, postural, flexibility and strengthening exercises to improve function and pain by06/06/21. LTG Duration 8 weeks 3 Care Home Goal (LTG) Pt will be able to don bra behind her back to improve I with ADLs by 06/06/21. LTG Duration 8 weeks 2 [employer] Dipper Goal (LTG) Pt will present with improved AROM left shoulder flexion and abduction equal to right shoulder to improve ability to perform overhead tasks by 06/06. LTG Duration 8 weeks 1 Care Home Goal (LTG) Pt will present with an improved QuickDASH score reflecting no more than 10% impairment to allow return to normal ADLs and IADLs by . LTG Duration 8 weeks Assessment Summary Assessment Initiated ROM with the cane today and right UE support. Pt tolerates well and she will con't in hook lying with her head and neck supported. Physical Therapy Plan Frequency and Duration Frequency of Treatment 2x/Week Duration of Treatment 8 weeks Plan of Care Start Date 04/06/21 Plan of Care End Date 06/06/21 Therapeutic Interventions Therapeutic Interventions Balance Training,Canalithic Repositioning,Coordination Training,Home Exercise Program ,Joint Mobilizations,Manual Therapy,Neuromuscular Re- education,Patient/Caregiver Education,Self-Care/Home Management,Sensory Integration ,Soft Tissue Mobilization, Taping,Therapeutic Activities, Therapeutic Exercises Modalities Cold Pack/Ice Massage,Hot Packs Next Visit Focus/Plan Next Note Type Treatment Note Next Visit Plan Consider self mobs over table (abduction) vs wall crawl and pillow slide, ongoing [place] Protocol
--- NOTE | 2021-05-03 14:29 | PT.OTN ---
Current Diagnoses Pain in left shoulder (05/03/21) Physical Therapy Treatment Note PT-OP-A Visit Information Start: 03/31/21 13:36 Freq: Status: Active Protocol: Document 05/03/21 13:48 MB (Rec: 05/03/21 14:29 MB [id number]) Out-Patient Physical Therapy Visit Information Visit Information Visit Type Treatment Note Visit Note Medicare and for Life Visit Start Time 13:48 Visit Stop Time 14:30 Total Visit Minutes 42 Visit Number 4 PT-OP-B Current Condition Start: 03/31/21 13:36 Freq: Status: Active Protocol: Document 04/06/21 10:33 MB (Rec: 04/06/21 10:48 MB [id number]) Current Condition History of Current Condition Onset Date 2.5 months ago Current Complaints Left arm pain when moving it certain ways and difficulty using it History of Current Condition Pt was reading in bed with her cat under the crook of her left arm and she went to lift her left arm and got sharp pain in her upper arm. Since then, it is about the same. She has been taking advil. She reports she is fine unless she does something it doesn' t like. Reaching up and reaching across with her left arm is difficult. She gets shooting pain. Reaching out and back is also troublesome. She is right handed. She has been going through a lot of grief after spouse and dog and another loved one's within several months of each other. She usually feels tension in her neck. She has trouble with the gardening and using hedge clippers and she duncan through. Pt cannot fasten her bra behind her back. The [facility] is 04/15/21 and she is just wanting to get through it. She was doing osteoporosis exercises before the left shoulder bothered her and she is asking about these. Pt reports 2/10 left shoulder pain. Prior Treatments and Tests Pt had PT in the past for plantar fasciitis and it went well, she responded well to massage therapy in the past, PT for her neck and back. She had a C3-4 issue and it got better with PT. Treatment Goals Patient/Caregiver Goals To improve left shoulder range and pain PT-OP-C Subjective Start: 03/31/21 13:36 Freq: Status: Active Protocol: Document 05/03/21 13:48 MB (Rec: 05/03/21 14:29 MB [id number]) OP-PT Subjective Patient Comments Patient Comments Pt states that she was sore the day after treatment and then felt a lot better afterwards. PT-OP-J Posture/Palpation/Skin Start: 03/31/21 13:36 Freq: Status: Active Protocol: Document 04/06/21 10:33 MB (Rec: 04/06/21 13:47 MB [id number]) Posture Evaluation Comments Posture Comments Standing posture: Forward head and rounded shoulders, Dowager's hump, increased lumbar lordosis, anterior tilt pelvis, left shoulder higher than the right, right shoulder blade lower than the left, left iliac crest higher than the right, B knee valgus, supination right ankle and pronation left ankle Palpation: increased tension left upper traps compared to the right PT-OP-K Range of Motion Start: 03/31/21 13:36 Freq: Status: Active Protocol: Document 04/06/21 10:33 MB (Rec: 04/06/21 13:47 MB [id number]) Shoulder Goniometric Range of Motion Shoulder Left Shoulder ROM WFL No Testing Position Standing Flexion 133 Abduction 112 Comments Supine ER and IR with shoulder in 90/90: 15 deg both and pt reports pain in upper arm, capsular pattern Right Shoulder ROM WFL Yes Testing Position Standing Flexion 161 Abduction 145 Comments Supine ER and IR with shoulder in 90/90 is WNLs Elbow/Forearm Range of Motion Elbow/Forearm ROM Limitations Comments B elbows, wrists and hands WNLs PT-OP-M Strength Start: 03/31/21 13:36 Freq: Status: Active Protocol: Document 04/06/21 10:33 MB (Rec: 04/06/21 13:47 MB [id number]) Shoulder Strength Shoulder Manual Muscle Testing Left Comments MMT deferred d/t painful and limited AROM Right Flexion 5 Normal Abduction (C5) 5 Normal External Rotation 5 Normal Internal Rotation 5 Normal Elbow/Forearm Strength Elbow and Forearm Manual Muscle Testing Left Flexion (C6) 5 Normal Extension (C7) 5 Normal Pronation 4 Good Supination 4 Good Right Flexion (C6) 5 Normal Extension (C7) 5 Normal Pronation 4 Good Supination 4 Good Wrist Strength Wrist Manual Muscle Testing Left Flexion (C7) 5 Normal Extension (C6) 5 Normal Right Flexion (C7) 5 Normal Extension (C6) 5 Normal PT-OP-Q Treatments Start: 03/31/21 13:36 Freq: Status: Active Protocol: Document 05/03/21 13:48 MB (Rec: 05/03/21 14:29 MB [id number]) Cardio Equipment Upper Body Ergometer (UBE) Duration (Minutes) 8 Other 1' forward and 1' backward Manual Therapy Treatment Other Other Manual Treatments [place] protocol left shoulder with improved active flexion and abduction after treatment. Pt prone: left shoulder ER with PA mobs at the joint line, grade II-III, left first rib isometric PT-OP-T Assessment and Plan Start: 03/31/21 13:36 Freq: Status: Active Protocol: Document 05/03/21 13:48 MB (Rec: 05/03/21 14:29 MB [id number]) Physical Therapy Assessment Rehab Potential Rehabilitation Potential Good Evaluation Complexity Number of Personal Factors/Comorbidities 1-2 Number of Body Systems Impaired 1-2 Clinical Presentation at Evaluation Stable Impairments Impairments Activity Tolerance,Functional Activities,Functional Mobility ,Pain,Posture,ROM,Soft Tissue Mobility,Strength Other Impairments Personal factors include grief process and stress after 's passing and upcoming graveside service (many months after his passing), pt lives alone. Body systems affected include psychosocial stressors on her body, musculoskeletal and neuromuscular. Her clinical presentation is currently stable. Goals 4 Mucker Operator Goal (LTG) Pt will perform progressive HEP with I including ROM, postural, flexibility and strengthening exercises to improve function and pain by06/06/21. LTG Duration 8 weeks 3 Correction Goal (LTG) Pt will be able to don bra behind her back to improve I with ADLs by 06/06/21. LTG Duration 8 weeks 2 Correction Goal (LTG) Pt will present with improved AROM left shoulder flexion and abduction equal to right shoulder to improve ability to perform overhead tasks by 06/06. LTG Duration 8 weeks 1 Correction Goal (LTG) Pt will present with an improved QuickDASH score reflecting no more than 10% impairment to allow return to normal ADLs and IADLs by . LTG Duration 8 weeks Assessment Summary Assessment Initiated UBE today and pt performed well. [place] Protocol to improve left shoulder motion and pt tolerates treatment well. Con' t progression. Physical Therapy Plan Frequency and Duration Frequency of Treatment 2x/Week Duration of Treatment 8 weeks Plan of Care Start Date 04/06/21 Plan of Care End Date 06/06/21 Therapeutic Interventions Therapeutic Interventions Balance Training,Canalithic Repositioning,Coordination Training,Home Exercise Program ,Joint Mobilizations,Manual Therapy,Neuromuscular Re- education,Patient/Caregiver Education,Self-Care/Home Management,Sensory Integration ,Soft Tissue Mobilization, Taping,Therapeutic Activities, Therapeutic Exercises Modalities Cold Pack/Ice Massage,Hot Packs Next Visit Focus/Plan Next Note Type Treatment Note Next Visit Plan Stretching over pool noodle, shoulder finger crawls, ongoing [place] Protocol
--- NOTE | 2021-05-05 12:27 | PT-OP ANOTE ---
Pt does not show for appointment. PT calls pt and she states that she had 1245 as the time for the appointment. PT asks her to check her appointments times via the front office. PT ed her that her next two appointments next week are at 1215 as well and she is agreeable to that.
--- NOTE | 2021-05-08 13:02 | PT.OTN ---
Current Diagnoses Pain in left shoulder (05/08/21) Physical Therapy Treatment Note PT-OP-A Visit Information Start: 03/31/21 13:36 Freq: Status: Active Protocol: Document 05/08/21 12:15 MB (Rec: 05/08/21 13:02 MB [id number]) Out-Patient Physical Therapy Visit Information Visit Information Visit Type Treatment Note Visit Note Medicare and for Life Visit Start Time 12:15 Visit Stop Time 13:00 Total Visit Minutes 45 Visit Number 5 PT-OP-B Current Condition Start: 03/31/21 13:36 Freq: Status: Active Protocol: Document 04/06/21 10:33 MB (Rec: 04/06/21 10:48 MB [id number]) Current Condition History of Current Condition Onset Date 2.5 months ago Current Complaints Left arm pain when moving it certain ways and difficulty using it History of Current Condition Pt was reading in bed with her cat under the crook of her left arm and she went to lift her left arm and got sharp pain in her upper arm. Since then, it is about the same. She has been taking advil. She reports she is fine unless she does something it doesn' t like. Reaching up and reaching across with her left arm is difficult. She gets shooting pain. Reaching out and back is also troublesome. She is right handed. She has been going through a lot of grief after spouse and dog and another loved one's within several months of each other. She usually feels tension in her neck. She has trouble with the gardening and using hedge clippers and she duncan through. Pt cannot fasten her bra behind her back. The [facility] for her passing is 04/15/21 and she is just wanting to get through it. She was doing osteoporosis exercises before the left shoulder bothered her and she is asking about these. Pt reports 2/10 left shoulder pain. Prior Treatments and Tests Pt had PT in the past for plantar fasciitis and it went well, she responded well to massage therapy in the past, PT for her neck and back. She had a C3-4 issue and it got better with PT. Treatment Goals Patient/Caregiver Goals To improve left shoulder range and pain PT-OP-C Subjective Start: 03/31/21 13:36 Freq: Status: Active Protocol: Document 05/08/21 12:15 MB (Rec: 05/08/21 13:02 MB [id number]) OP-PT Subjective Patient Comments Patient Comments Pt states that she had a good weekend at the yard sale. She got rid of a lot of stuff. PT-OP-J Posture/Palpation/Skin Start: 03/31/21 13:36 Freq: Status: Active Protocol: Document 04/06/21 10:33 MB (Rec: 04/06/21 13:47 MB [id number]) Posture Evaluation Comments Posture Comments Standing posture: Forward head and rounded shoulders, Dowager's hump, increased lumbar lordosis, anterior tilt pelvis, left shoulder higher than the right, right shoulder blade lower than the left, left iliac crest higher than the right, B knee valgus, supination right ankle and pronation left ankle Palpation: increased tension left upper traps compared to the right PT-OP-K Range of Motion Start: 03/31/21 13:36 Freq: Status: Active Protocol: Document 04/06/21 10:33 MB (Rec: 04/06/21 13:47 MB [id number]) Shoulder Goniometric Range of Motion Shoulder Left Shoulder ROM WFL No Testing Position Standing Flexion 133 Abduction 112 Comments Supine ER and IR with shoulder in 90/90: 15 deg both and pt reports pain in upper arm, capsular pattern Right Shoulder ROM WFL Yes Testing Position Standing Flexion 161 Abduction 145 Comments Supine ER and IR with shoulder in 90/90 is WNLs Elbow/Forearm Range of Motion Elbow/Forearm ROM Limitations Comments B elbows, wrists and hands WNLs PT-OP-M Strength Start: 03/31/21 13:36 Freq: Status: Active Protocol: Document 04/06/21 10:33 MB (Rec: 04/06/21 13:47 MB [id number]) Shoulder Strength Shoulder Manual Muscle Testing Left Comments MMT deferred d/t painful and limited AROM Right Flexion 5 Normal Abduction (C5) 5 Normal External Rotation 5 Normal Internal Rotation 5 Normal Elbow/Forearm Strength Elbow and Forearm Manual Muscle Testing Left Flexion (C6) 5 Normal Extension (C7) 5 Normal Pronation 4 Good Supination 4 Good Right Flexion (C6) 5 Normal Extension (C7) 5 Normal Pronation 4 Good Supination 4 Good Wrist Strength Wrist Manual Muscle Testing Left Flexion (C7) 5 Normal Extension (C6) 5 Normal Right Flexion (C7) 5 Normal Extension (C6) 5 Normal PT-OP-Q Treatments Start: 03/31/21 13:36 Freq: Status: Active Protocol: Document 05/08/21 12:15 MB (Rec: 05/08/21 13:02 MB [id number]) Cardio Equipment Upper Body Ergometer (UBE) Duration (Minutes) 8 Other 1' forward and 1' backward Therapeutic Exercises Supine Exercises Pect stretch Side bilateral Reps/Minutes Teal pool noodle Comments Active stretch and then hold as needed Posterior capsule stretch Side left Reps/Minutes Teal Pool noodle Comments Right hand assisting with the stretch ER with cane Side left Equipment Used Teal pool noodle Comments Right hand on bottom of cane assisting and then resisted isometric Cane exercises abduction and flexion Side bilateral Equipment Used Teal pool noodle Comments B flexion, left abduction Manual Therapy Treatment Other Other Manual Treatments [place] protocol left shoulder with improved active flexion and abduction after treatment. Pt prone: left shoulder ER and IR with PA mobs at the joint line, grade II-III PT-OP-T Assessment and Plan Start: 03/31/21 13:36 Freq: Status: Active Protocol: Document 05/08/21 12:15 MB (Rec: 05/08/21 13:02 MB [id number]) Physical Therapy Assessment Rehab Potential Rehabilitation Potential Good Evaluation Complexity Number of Personal Factors/Comorbidities 1-2 Number of Body Systems Impaired 1-2 Clinical Presentation at Evaluation Stable Impairments Impairments Activity Tolerance,Functional Activities,Functional Mobility ,Pain,Posture,ROM,Soft Tissue Mobility,Strength Other Impairments Personal factors include grief process and stress after 's passing and upcoming graveside service (many months after his passing), pt lives alone. Body systems affected include psychosocial stressors on her body, musculoskeletal and neuromuscular. Her clinical presentation is currently stable. Goals 4 Intermediate Goal (LTG) Pt will perform progressive HEP with I including ROM, postural, flexibility and strengthening exercises to improve function and pain by06/06/21. LTG Duration 8 weeks 3 Sprinkler Inspector Goal (LTG) Pt will be able to don bra behind her back to improve I with ADLs by 06/06/21. LTG Duration 8 weeks 2 Intermediate Goal (LTG) Pt will present with improved AROM left shoulder flexion and abduction equal to right shoulder to improve ability to perform overhead tasks by 06/06. LTG Duration 8 weeks 1 Sprinkler Inspector Goal (LTG) Pt will present with an improved QuickDASH score reflecting no more than 10% impairment to allow return to normal ADLs and IADLs by . LTG Duration 8 weeks Assessment Summary Assessment Progressed shoulder and pect stretches over the pool noodle today. Pt tolerates well and will look into getting a pool noodle. Physical Therapy Plan Frequency and Duration Frequency of Treatment 2x/Week Duration of Treatment 8 weeks Plan of Care Start Date 04/06/21 Plan of Care End Date 06/06/21 Therapeutic Interventions Therapeutic Interventions Balance Training,Canalithic Repositioning,Coordination Training,Home Exercise Program ,Joint Mobilizations,Manual Therapy,Neuromuscular Re- education,Patient/Caregiver Education,Self-Care/Home Management,Sensory Integration ,Soft Tissue Mobilization, Taping,Therapeutic Activities, Therapeutic Exercises Modalities Cold Pack/Ice Massage,Hot Packs Next Visit Focus/Plan Next Note Type Treatment Note Next Visit Plan Progress exercises over noodle including strengthening Open book with elbows bent and rib breathing [place] Protocol
--- NOTE | 2021-05-11 13:02 | PT.OTN ---
Current Diagnoses Pain in left shoulder (05/11/21) Physical Therapy Treatment Note PT-OP-A Visit Information Start: 03/31/21 13:36 Freq: Status: Active Protocol: Document 05/11/21 12:16 MB (Rec: 05/11/21 12:57 MB [id number]) Out-Patient Physical Therapy Visit Information Visit Information Visit Type Treatment Note Visit Note Medicare and for Life Visit Start Time 12:16 Visit Stop Time 13:00 Total Visit Minutes 44 Visit Number 6 PT-OP-B Current Condition Start: 03/31/21 13:36 Freq: Status: Active Protocol: Document 04/06/21 10:33 MB (Rec: 04/06/21 10:48 MB [id number]) Current Condition History of Current Condition Onset Date 2.5 months ago Current Complaints Left arm pain when moving it certain ways and difficulty using it History of Current Condition Pt was reading in bed with her cat under the crook of her left arm and she went to lift her left arm and got sharp pain in her upper arm. Since then, it is about the same. She has been taking advil. She reports she is fine unless she does something it doesn' t like. Reaching up and reaching across with her left arm is difficult. She gets shooting pain. Reaching out and back is also troublesome. She is right handed. She has been going through a lot of grief after spouse and dog and another loved one's within several months of each other. She usually feels tension in her neck. She has trouble with the gardening and using hedge clippers and she duncan through. Pt cannot fasten her bra behind her back. The [facility] for her passing is 04/15/21 and she is just wanting to get through it. She was doing osteoporosis exercises before the left shoulder bothered her and she is asking about these. Pt reports 2/10 left shoulder pain. Prior Treatments and Tests Pt had PT in the past for plantar fasciitis and it went well, she responded well to massage therapy in the past, PT for her neck and back. She had a C3-4 issue and it got better with PT. Treatment Goals Patient/Caregiver Goals To improve left shoulder range and pain PT-OP-C Subjective Start: 03/31/21 13:36 Freq: Status: Active Protocol: Document 05/11/21 12:16 MB (Rec: 05/11/21 12:57 MB [id number]) OP-PT Subjective Patient Comments Patient Comments Pt states that her left arm is a little sore and she is doing her exercises PT-OP-J Posture/Palpation/Skin Start: 03/31/21 13:36 Freq: Status: Active Protocol: Document 04/06/21 10:33 MB (Rec: 04/06/21 13:47 MB [id number]) Posture Evaluation Comments Posture Comments Standing posture: Forward head and rounded shoulders, Dowager's hump, increased lumbar lordosis, anterior tilt pelvis, left shoulder higher than the right, right shoulder blade lower than the left, left iliac crest higher than the right, B knee valgus, supination right ankle and pronation left ankle Palpation: increased tension left upper traps compared to the right PT-OP-K Range of Motion Start: 03/31/21 13:36 Freq: Status: Active Protocol: Document 04/06/21 10:33 MB (Rec: 04/06/21 13:47 MB [id number]) Shoulder Goniometric Range of Motion Shoulder Left Shoulder ROM WFL No Testing Position Standing Flexion 133 Abduction 112 Comments Supine ER and IR with shoulder in 90/90: 15 deg both and pt reports pain in upper arm, capsular pattern Right Shoulder ROM WFL Yes Testing Position Standing Flexion 161 Abduction 145 Comments Supine ER and IR with shoulder in 90/90 is WNLs Elbow/Forearm Range of Motion Elbow/Forearm ROM Limitations Comments B elbows, wrists and hands WNLs PT-OP-M Strength Start: 03/31/21 13:36 Freq: Status: Active Protocol: Document 04/06/21 10:33 MB (Rec: 04/06/21 13:47 MB [id number]) Shoulder Strength Shoulder Manual Muscle Testing Left Comments MMT deferred d/t painful and limited AROM Right Flexion 5 Normal Abduction (C5) 5 Normal External Rotation 5 Normal Internal Rotation 5 Normal Elbow/Forearm Strength Elbow and Forearm Manual Muscle Testing Left Flexion (C6) 5 Normal Extension (C7) 5 Normal Pronation 4 Good Supination 4 Good Right Flexion (C6) 5 Normal Extension (C7) 5 Normal Pronation 4 Good Supination 4 Good Wrist Strength Wrist Manual Muscle Testing Left Flexion (C7) 5 Normal Extension (C6) 5 Normal Right Flexion (C7) 5 Normal Extension (C6) 5 Normal PT-OP-Q Treatments Start: 03/31/21 13:36 Freq: Status: Active Protocol: Document 05/11/21 12:16 MB (Rec: 05/11/21 12:57 MB [id number]) Cardio Equipment Upper Body Ergometer (UBE) Duration (Minutes) 8 Other 1' forward and 1' backward Therapeutic Exercises Supine Exercises Buteyko breathing Supine Exercise Name Ed in theory, purpose and reduced breathing and with diaphragm breathing Comments See comments below PT-OP-T Assessment and Plan Start: 03/31/21 13:36 Freq: Status: Active Protocol: Document 05/11/21 12:16 MB (Rec: 05/11/21 12:57 MB [id number]) Physical Therapy Assessment Rehab Potential Rehabilitation Potential Good Evaluation Complexity Number of Personal Factors/Comorbidities 1-2 Number of Body Systems Impaired 1-2 Clinical Presentation at Evaluation Stable Impairments Impairments Activity Tolerance,Functional Activities,Functional Mobility ,Pain,Posture,ROM,Soft Tissue Mobility,Strength Other Impairments Personal factors include grief process and stress after 's passing and upcoming [employer] service (many months after his passing), pt lives alone. Body systems affected include psychosocial stressors on her body, musculoskeletal and neuromuscular. Her clinical presentation is currently stable. Goals 4 Trust Mail Clerk Goal (LTG) Pt will perform progressive HEP with I including ROM, postural, flexibility and strengthening exercises to improve function and pain by06/06/21. LTG Duration 8 weeks 3 Trust Mail Clerk Goal (LTG) Pt will be able to don bra behind her back to improve I with ADLs by 06/06/21. LTG Duration 8 weeks 2 Care Home Goal (LTG) Pt will present with improved AROM left shoulder flexion and abduction equal to right shoulder to improve ability to perform overhead tasks by 06/06. LTG Duration 8 weeks 1 Trust Mail Clerk Goal (LTG) Pt will present with an improved QuickDASH score reflecting no more than 10% impairment to allow return to normal ADLs and IADLs by . LTG Duration 8 weeks Assessment Summary Assessment Buteyko breathing ed in theory , purpose and practice. Vertical piece of paper tape over mouth. HR and O2 sats in left index finger before treatment: 68 BPM and 97%; 1st rep: 28 sec: 80 BPM and 99%; 2nd rep: 32 sec: 73 BPM and 99 %. When talking, O2 sats decrease to 94-97%. 3rd rep: 32 sec: 70 BPM, 99%; 4th rep: 32 sec: 74 BPM, 95-98%; 5th rep: 37 sec: 76 BPM, 97%; last rep: 37 sec and HR and O2 sats are best at 32 sec which were 66 BPM and 99%, after that, HR increased. Pt to perform Buteyko (nasal breathing in supine at home before bed). Con't per plan below. Physical Therapy Plan Frequency and Duration Frequency of Treatment 2x/Week Duration of Treatment 8 weeks Plan of Care Start Date 04/06/21 Plan of Care End Date 06/06/21 Therapeutic Interventions Therapeutic Interventions Balance Training,Canalithic Repositioning,Coordination Training,Home Exercise Program ,Joint Mobilizations,Manual Therapy,Neuromuscular Re- education,Patient/Caregiver Education,Self-Care/Home Management,Sensory Integration ,Soft Tissue Mobilization, Taping,Therapeutic Activities, Therapeutic Exercises Modalities Cold Pack/Ice Massage,Hot Packs Next Visit Focus/Plan Next Note Type Treatment Note Next Visit Plan Progress exercises over noodle including strengthening [place] Protocol
--- NOTE | 2021-05-15 13:00 | PT.OTN ---
Current Diagnoses Pain in left shoulder (05/15/21) Physical Therapy Treatment Note PT-OP-A Visit Information Start: 03/31/21 13:36 Freq: Status: Active Protocol: Document 05/15/21 12:19 SP (Rec: 05/15/21 13:11 SP [id number]) Out-Patient Physical Therapy Visit Information Visit Information Visit Type Treatment Note Visit Note Medicare and for Life Visit Start Time 12:19 Visit Stop Time 13:00 Total Visit Minutes 41 Visit Number 7 Number of ROLL FILLER Visits 1 Evaluation Information Evaluation Date 04/06/21 PT-OP-B Current Condition Start: 03/31/21 13:36 Freq: Status: Active Protocol: Document 04/06/21 10:33 MB (Rec: 04/06/21 10:48 MB [id number]) Current Condition History of Current Condition Onset Date 2.5 months ago Current Complaints Left arm pain when moving it certain ways and difficulty using it History of Current Condition Pt was reading in bed with her cat under the crook of her left arm and she went to lift her left arm and got sharp pain in her upper arm. Since then, it is about the same. She has been taking advil. She reports she is fine unless she does something it doesn' t like. Reaching up and reaching across with her left arm is difficult. She gets shooting pain. Reaching out and back is also troublesome. She is right handed. She has been going through a lot of grief after spouse and dog and another loved one's within several months of each other. She usually feels tension in her neck. She has trouble with the gardening and using hedge clippers and she duncan through. Pt cannot fasten her bra behind her back. The [facility] for her passing is 04/15/21 and she is just wanting to get through it. She was doing osteoporosis exercises before the left shoulder bothered her and she is asking about these. Pt reports 2/10 left shoulder pain. Prior Treatments and Tests Pt had PT in the past for plantar fasciitis and it went well, she responded well to massage therapy in the past, PT for her neck and back. She had a C3-4 issue and it got better with PT. Treatment Goals Patient/Caregiver Goals To improve left shoulder range and pain PT-OP-C Subjective Start: 03/31/21 13:36 Freq: Status: Active Protocol: Document 05/15/21 12:19 SP (Rec: 05/15/21 13:11 SP [id number]) OP-PT Subjective Patient Comments Patient Comments Pt states did get a new exercises last tx laying over pool noodle and wants to review, doesn't have same range as other UE. Patient Reported Progress Improving PT-OP-J Posture/Palpation/Skin Start: 03/31/21 13:36 Freq: Status: Active Protocol: Document 04/06/21 10:33 MB (Rec: 04/06/21 13:47 MB [id number]) Posture Evaluation Comments Posture Comments Standing posture: Forward head and rounded shoulders, Dowager's hump, increased lumbar lordosis, anterior tilt pelvis, left shoulder higher than the right, right shoulder blade lower than the left, left iliac crest higher than the right, B knee valgus, supination right ankle and pronation left ankle Palpation: increased tension left upper traps compared to the right PT-OP-K Range of Motion Start: 03/31/21 13:36 Freq: Status: Active Protocol: Document 04/06/21 10:33 MB (Rec: 04/06/21 13:47 MB [id number]) Shoulder Goniometric Range of Motion Shoulder Left Shoulder ROM WFL No Testing Position Standing Flexion 133 Abduction 112 Comments Supine ER and IR with shoulder in 90/90: 15 deg both and pt reports pain in upper arm, capsular pattern Right Shoulder ROM WFL Yes Testing Position Standing Flexion 161 Abduction 145 Comments Supine ER and IR with shoulder in 90/90 is WNLs Elbow/Forearm Range of Motion Elbow/Forearm ROM Limitations Comments B elbows, wrists and hands WNLs PT-OP-M Strength Start: 03/31/21 13:36 Freq: Status: Active Protocol: Document 04/06/21 10:33 MB (Rec: 04/06/21 13:47 MB [id number]) Shoulder Strength Shoulder Manual Muscle Testing Left Comments MMT deferred d/t painful and limited AROM Right Flexion 5 Normal Abduction (C5) 5 Normal External Rotation 5 Normal Internal Rotation 5 Normal Elbow/Forearm Strength Elbow and Forearm Manual Muscle Testing Left Flexion (C6) 5 Normal Extension (C7) 5 Normal Pronation 4 Good Supination 4 Good Right Flexion (C6) 5 Normal Extension (C7) 5 Normal Pronation 4 Good Supination 4 Good Wrist Strength Wrist Manual Muscle Testing Left Flexion (C7) 5 Normal Extension (C6) 5 Normal Right Flexion (C7) 5 Normal Extension (C6) 5 Normal PT-OP-Q Treatments Start: 03/31/21 13:36 Freq: Status: Active Protocol: Document 05/15/21 12:19 SP (Rec: 05/15/21 13:11 SP [id number]) Cardio Equipment Upper Body Ergometer (UBE) Duration (Minutes) 8 RPM 55 Seat Position 13 Height 3.5 Other 1' forward and 1' backward, 410 RPM Therapeutic Exercises Supine Exercises Buteyko breathing Supine Exercise Name diaphramatic breath #1 Reps/Minutes 14 , 32. Pect stretch Side bilateral Equipment Used Teal pool noodle Reps/Minutes 30 Comments Active stretch and then hold as needed Posterior capsule stretch Side left Equipment Used Teal Pool noodle Reps/Minutes 30 Comments Right hand assisting with the stretch-cued scap/humeral head depress ER with cane Side left Equipment Used Teal pool noodle Comments Right hand on bottom of cane assisting and then resisted isometric Cane exercises abduction and flexion Side bilateral Resistance AROM, no cane Equipment Used over Teal pool noodle Reps/Minutes x10 each Comments B flexion, left abduction Sidelying Exercises Open book with elbows bent and rib breathing Sidelying Exercise Name head with arm and scap depress awareness Side right Comments 3 reps slowly, prolonged hold with breath Standing Exercises shld IR behind back Side left Resistance AROM Reps/Minutes 3 reps hold 15 Comments assessment during ROM, cued humerus closer to side. PT-OP-T Assessment and Plan Start: 03/31/21 13:36 Freq: Status: Active Protocol: Document 05/15/21 12:19 SP (Rec: 05/15/21 13:11 SP [id number]) Physical Therapy Assessment Goals 4 Credentialing Specialist Goal (LTG) Pt will perform progressive HEP with I including ROM, postural, flexibility and strengthening exercises to improve function and pain by06/06/21. 05/15/21: HEP: supine shld ER/ FF/ABD/Post capsule and pec stretch over noodle, open book , diaphramatic butekyo breath, LTG Duration 8 weeks 3 Mcfp Goal (LTG) Pt will be able to each behind and wash her back to improve I with ADLs by 06/06/21. LTG Duration 8 weeks 2 Credentialing Specialist Goal (LTG) Pt will present with improved AROM left shoulder flexion and abduction equal to right shoulder to improve ability to perform overhead tasks by 06/06. 05/15/21 standing: L UE FF: 138*, ABD 138*, IR T5 , ER 73* (90/90: 79* IR, ER 20 *) RUE FF: 160*, ABD 180* WFL, IR T4, ER 98* LTG Duration 8 weeks 1 Credentialing Specialist Goal (LTG) Pt will present with an improved QuickDASH score reflecting no more than 10% impairment to allow return to normal ADLs and IADLs by . LTG Duration 8 weeks Progress Towards Goals Progress Towards Goals Progressing Toward Goals Progress Comments Pt is making gains in FF and ABD ROM reaching OH (see ROM goal for updated ROM measurements) and able to getting objects out of cupboard with lessened pain. Assessment Summary Assessment Pt making gains in AROM. Tx review, butekyo breath, supine over noodle: shld ER assist of cane for more ROM, ff and abd able to do w/out cane, post capsule cross body stretch cued scap depression awareness, initiated standing IR behind back cued arm close to side. Physical Therapy Plan Frequency and Duration Frequency of Treatment 2x/Week Duration of Treatment 8 weeks Plan of Care Start Date 04/06/21 Plan of Care End Date 06/06/21 Therapeutic Interventions Therapeutic Interventions Balance Training,Canalithic Repositioning,Coordination Training,Home Exercise Program ,Joint Mobilizations,Manual Therapy,Neuromuscular Re- education,Patient/Caregiver Education,Self-Care/Home Management,Sensory Integration ,Soft Tissue Mobilization, Taping,Therapeutic Activities, Therapeutic Exercises Modalities Cold Pack/Ice Massage,Hot Packs Next Visit Focus/Plan Next Note Type Treatment Note Next Visit Plan POC: continue progress exercises over noodle then into strengthening if tolerated. [place] Protocol initiate if needed
--- NOTE | 2021-05-19 11:16 | PT.OTN ---
Current Diagnoses Pain in left shoulder (05/19/21) Physical Therapy Treatment Note PT-OP-A Visit Information Start: 03/31/21 13:36 Freq: Status: Active Protocol: Document 05/19/21 10:33 MB (Rec: 05/19/21 11:16 MB [id number]) Out-Patient Physical Therapy Visit Information Visit Information Visit Type Treatment Note Visit Note Medicare and for Life Visit Start Time 10:33 Visit Stop Time 11:15 Total Visit Minutes 42 Visit Number 8 PT-OP-B Current Condition Start: 03/31/21 13:36 Freq: Status: Active Protocol: Document 04/06/21 10:33 MB (Rec: 04/06/21 10:48 MB [id number]) Current Condition History of Current Condition Onset Date 2.5 months ago Current Complaints Left arm pain when moving it certain ways and difficulty using it History of Current Condition Pt was reading in bed with her cat under the crook of her left arm and she went to lift her left arm and got sharp pain in her upper arm. Since then, it is about the same. She has been taking advil. She reports she is fine unless she does something it doesn' t like. Reaching up and reaching across with her left arm is difficult. She gets shooting pain. Reaching out and back is also troublesome. She is right handed. She has been going through a lot of grief after spouse and dog and another loved one's within several months of each other. She usually feels tension in her neck. She has trouble with the gardening and using hedge clippers and she duncan through. Pt cannot fasten her bra behind her back. The [facility] for her passing is 04/15/21 and she is just wanting to get through it. She was doing osteoporosis exercises before the left shoulder bothered her and she is asking about these. Pt reports 2/10 left shoulder pain. Prior Treatments and Tests Pt had PT in the past for plantar fasciitis and it went well, she responded well to massage therapy in the past, PT for her neck and back. She had a C3-4 issue and it got better with PT. Treatment Goals Patient/Caregiver Goals To improve left shoulder range and pain PT-OP-C Subjective Start: 03/31/21 13:36 Freq: Status: Active Protocol: Document 05/19/21 10:33 MB (Rec: 05/19/21 11:16 MB [id number]) OP-PT Subjective Patient Comments Patient Comments Pt states that she feels she is doing about the same as last week. She is doing her exercises. She can reach up and across without as much sharp pain. She is adopting a kitten. PT-OP-J Posture/Palpation/Skin Start: 03/31/21 13:36 Freq: Status: Active Protocol: Document 04/06/21 10:33 MB (Rec: 04/06/21 13:47 MB [id number]) Posture Evaluation Comments Posture Comments Standing posture: Forward head and rounded shoulders, Dowager's hump, increased lumbar lordosis, anterior tilt pelvis, left shoulder higher than the right, right shoulder blade lower than the left, left iliac crest higher than the right, B knee valgus, supination right ankle and pronation left ankle Palpation: increased tension left upper traps compared to the right PT-OP-K Range of Motion Start: 03/31/21 13:36 Freq: Status: Active Protocol: Document 04/06/21 10:33 MB (Rec: 04/06/21 13:47 MB [id number]) Shoulder Goniometric Range of Motion Shoulder Left Shoulder ROM WFL No Testing Position Standing Flexion 133 Abduction 112 Comments Supine ER and IR with shoulder in 90/90: 15 deg both and pt reports pain in upper arm, capsular pattern Right Shoulder ROM WFL Yes Testing Position Standing Flexion 161 Abduction 145 Comments Supine ER and IR with shoulder in 90/90 is WNLs Elbow/Forearm Range of Motion Elbow/Forearm ROM Limitations Comments B elbows, wrists and hands WNLs PT-OP-M Strength Start: 03/31/21 13:36 Freq: Status: Active Protocol: Document 04/06/21 10:33 MB (Rec: 04/06/21 13:47 MB [id number]) Shoulder Strength Shoulder Manual Muscle Testing Left Comments MMT deferred d/t painful and limited AROM Right Flexion 5 Normal Abduction (C5) 5 Normal External Rotation 5 Normal Internal Rotation 5 Normal Elbow/Forearm Strength Elbow and Forearm Manual Muscle Testing Left Flexion (C6) 5 Normal Extension (C7) 5 Normal Pronation 4 Good Supination 4 Good Right Flexion (C6) 5 Normal Extension (C7) 5 Normal Pronation 4 Good Supination 4 Good Wrist Strength Wrist Manual Muscle Testing Left Flexion (C7) 5 Normal Extension (C6) 5 Normal Right Flexion (C7) 5 Normal Extension (C6) 5 Normal PT-OP-Q Treatments Start: 03/31/21 13:36 Freq: Status: Active Protocol: Document 05/19/21 10:33 MB (Rec: 05/19/21 11:16 MB [id number]) Cardio Equipment Upper Body Ergometer (UBE) Duration (Minutes) 10 Other 1' forward and 1' backward Manual Therapy Treatment Other Other Manual Treatments Left shoulder [place] Protocol and then PA mobs with left shoulder in IR and ER and pt in prone: grade III-IV and then with pt supine and left shoulder in ER: grade III PT-OP-T Assessment and Plan Start: 03/31/21 13:36 Freq: Status: Active Protocol: Document 05/19/21 10:33 MB (Rec: 05/19/21 11:16 MB [id number]) Physical Therapy Assessment Rehab Potential Rehabilitation Potential Good Evaluation Complexity Number of Personal Factors/Comorbidities 1-2 Number of Body Systems Impaired 1-2 Clinical Presentation at Evaluation Stable Impairments Impairments Activity Tolerance,Functional Activities,Functional Mobility ,Pain,Posture,ROM,Soft Tissue Mobility,Strength Other Impairments Personal factors include grief process and stress after 's passing and upcoming graveside service (many months after his passing), pt lives alone. Body systems affected include psychosocial stressors on her body, musculoskeletal and neuromuscular. Her clinical presentation is currently stable. Goals 4 Content Designer Goal (LTG) Pt will perform progressive HEP with I including ROM, postural, flexibility and strengthening exercises to improve function and pain by06/06/21. LTG Duration 8 weeks 3 Content Designer Goal (LTG) Pt will be able to don bra behind her back to improve I with ADLs by 06/06/21. LTG Duration 8 weeks 2 Content Designer Goal (LTG) Pt will present with improved AROM left shoulder flexion and abduction equal to right shoulder to improve ability to perform overhead tasks by 06/06. LTG Duration 8 weeks 1 Mcfp Goal (LTG) Pt will present with an improved QuickDASH score reflecting no more than 10% impairment to allow return to normal ADLs and IADLs by . LTG Duration 8 weeks Assessment Summary Assessment Pt con't to report that functional use of arm is better and her AROM is improved with manual work. Ed pt that she does not have to perform pect stretch on pool noodle if it is problematic right now: that side lying open book with elbows bent works on thorax and pects. Con 't per plan. Physical Therapy Plan Frequency and Duration Frequency of Treatment 2x/Week Duration of Treatment 8 weeks Plan of Care Start Date 04/06/21 Plan of Care End Date 06/06/21 Therapeutic Interventions Therapeutic Interventions Balance Training,Canalithic Repositioning,Coordination Training,Home Exercise Program ,Joint Mobilizations,Manual Therapy,Neuromuscular Re- education,Patient/Caregiver Education,Self-Care/Home Management,Sensory Integration ,Soft Tissue Mobilization, Taping,Therapeutic Activities, Therapeutic Exercises Modalities Cold Pack/Ice Massage,Hot Packs Next Visit Focus/Plan Next Note Type Treatment Note Next Visit Plan POC: continue progress exercises over noodle then into strengthening if tolerated. [place] Protocol Next treatment with primary therapist will do progress note
--- NOTE | 2021-05-23 13:05 | PT.OTN ---
Current Diagnoses Pain in left shoulder (05/23/21) Physical Therapy Treatment Note PT-OP-A Visit Information Start: 03/31/21 13:36 Freq: Status: Active Protocol: Document 05/23/21 12:18 SP (Rec: 05/23/21 13:11 SP [id number]) Out-Patient Physical Therapy Visit Information Visit Information Visit Type Treatment Note Visit Note Medicare and for Life Next treatment with primary therapist will do progress note Visit Start Time 12:18 Visit Stop Time 13:05 Total Visit Minutes 47 Visit Number 9 Number of INSPECTOR BULLET SLUGS Visits 1 Evaluation Information Evaluation Date 04/06/21 PT-OP-B Current Condition Start: 03/31/21 13:36 Freq: Status: Active Protocol: Document 04/06/21 10:33 MB (Rec: 04/06/21 10:48 MB [id number]) Current Condition History of Current Condition Onset Date 2.5 months ago Current Complaints Left arm pain when moving it certain ways and difficulty using it History of Current Condition Pt was reading in bed with her cat under the crook of her left arm and she went to lift her left arm and got sharp pain in her upper arm. Since then, it is about the same. She has been taking advil. She reports she is fine unless she does something it doesn' t like. Reaching up and reaching across with her left arm is difficult. She gets shooting pain. Reaching out and back is also troublesome. She is right handed. She has been going through a lot of grief after spouse and dog and another loved one's within several months of each other. She usually feels tension in her neck. She has trouble with the gardening and using hedge clippers and she duncan through. Pt cannot fasten her bra behind her back. The [facility] for her passing is 04/15/21 and she is just wanting to get through it. She was doing osteoporosis exercises before the left shoulder bothered her and she is asking about these. Pt reports 2/10 left shoulder pain. Prior Treatments and Tests Pt had PT in the past for plantar fasciitis and it went well, she responded well to massage therapy in the past, PT for her neck and back. She had a C3-4 issue and it got better with PT. Treatment Goals Patient/Caregiver Goals To improve left shoulder range and pain PT-OP-C Subjective Start: 03/31/21 13:36 Freq: Status: Active Protocol: Document 05/23/21 12:18 SP (Rec: 05/23/21 13:11 SP [id number]) OP-PT Subjective Patient Comments Patient Comments Pt stated felt better after last tx so went out and did some hedge shearing so got sore but did some self STMs using ball and over noodle stretching and ok today. Patient Reported Progress Improving PT-OP-J Posture/Palpation/Skin Start: 03/31/21 13:36 Freq: Status: Active Protocol: Document 04/06/21 10:33 MB (Rec: 04/06/21 13:47 MB [id number]) Posture Evaluation Comments Posture Comments Standing posture: Forward head and rounded shoulders, Dowager's hump, increased lumbar lordosis, anterior tilt pelvis, left shoulder higher than the right, right shoulder blade lower than the left, left iliac crest higher than the right, B knee valgus, supination right ankle and pronation left ankle Palpation: increased tension left upper traps compared to the right PT-OP-K Range of Motion Start: 03/31/21 13:36 Freq: Status: Active Protocol: Document 04/06/21 10:33 MB (Rec: 04/06/21 13:47 MB [id number]) Shoulder Goniometric Range of Motion Shoulder Left Shoulder ROM WFL No Testing Position Standing Flexion 133 Abduction 112 Comments Supine ER and IR with shoulder in 90/90: 15 deg both and pt reports pain in upper arm, capsular pattern Right Shoulder ROM WFL Yes Testing Position Standing Flexion 161 Abduction 145 Comments Supine ER and IR with shoulder in 90/90 is WNLs Elbow/Forearm Range of Motion Elbow/Forearm ROM Limitations Comments B elbows, wrists and hands WNLs PT-OP-M Strength Start: 03/31/21 13:36 Freq: Status: Active Protocol: Document 04/06/21 10:33 MB (Rec: 04/06/21 13:47 MB [id number]) Shoulder Strength Shoulder Manual Muscle Testing Left Comments MMT deferred d/t painful and limited AROM Right Flexion 5 Normal Abduction (C5) 5 Normal External Rotation 5 Normal Internal Rotation 5 Normal Elbow/Forearm Strength Elbow and Forearm Manual Muscle Testing Left Flexion (C6) 5 Normal Extension (C7) 5 Normal Pronation 4 Good Supination 4 Good Right Flexion (C6) 5 Normal Extension (C7) 5 Normal Pronation 4 Good Supination 4 Good Wrist Strength Wrist Manual Muscle Testing Left Flexion (C7) 5 Normal Extension (C6) 5 Normal Right Flexion (C7) 5 Normal Extension (C6) 5 Normal PT-OP-Q Treatments Start: 03/31/21 13:36 Freq: Status: Active Protocol: Document 05/23/21 12:18 SP (Rec: 05/23/21 13:11 SP [id number]) Cardio Equipment Upper Body Ergometer (UBE) Duration (Minutes) 10 RPM 60 Seat Position 13 Height 3 Other 1' forward and 1' backward Therapeutic Exercises Supine Exercises FF, scaption TB Supine Exercise Name added to HEP Side left Resistance Tb #1 Equipment Used over blue foam roller Reps/Minutes x10 each Comments occasional cue for scap/ humeral head depression awareness Pect stretch Side bilateral Equipment Used blue foam roller Reps/Minutes 30 Comments Active stretch and then hold as needed Cane exercises abduction and flexion Side bilateral Resistance AROM Equipment Used over blue foam roller Reps/Minutes x10 each Comments B flexion, left abduction Sitting Exercises pulleys Sitting Exercise Name FF, ABD Side left Reps/Minutes x10 Comments cued scap and humeral head depression Manual Therapy Treatment Other Other Manual Treatments Left shoulder [place] Protocol and then PA mobs with left shoulder in IR and ER and pt in prone: grade II and then with pt supine and left shoulder in ER: grade II PT-OP-T Assessment and Plan Start: 03/31/21 13:36 Freq: Status: Active Protocol: Document 05/23/21 12:18 SP (Rec: 05/23/21 13:11 SP [id number]) Physical Therapy Assessment Goals 4 Retirement Goal (LTG) Pt will perform progressive HEP with I including ROM, postural, flexibility and strengthening exercises to improve function and pain by06/06/21. LTG Duration 8 weeks 3 Retirement Goal (LTG) Pt will be able to don bra behind her back to improve I with ADLs by 06/06/21. LTG Duration 8 weeks 2 [employer]ator [employer] Goal (LTG) Pt will present with improved AROM left shoulder flexion and abduction equal to right shoulder to improve ability to perform overhead tasks by 06/06. LTG Duration 8 weeks 1 Retirement Goal (LTG) Pt will present with an improved QuickDASH score reflecting no more than 10% impairment to allow return to normal ADLs and IADLs by . LTG Duration 8 weeks Assessment Summary Assessment Pt tolerated tx well. Pt improved in ROM over head with report of less tension during FF and ABD pulleys, supine over foam roller and initiated TB FF and scaption. Physical Therapy Plan Frequency and Duration Frequency of Treatment 2x/Week Duration of Treatment 8 weeks Plan of Care Start Date 04/06/21 Plan of Care End Date 06/06/21 Therapeutic Interventions Therapeutic Interventions Balance Training,Canalithic Repositioning,Coordination Training,Home Exercise Program ,Joint Mobilizations,Manual Therapy,Neuromuscular Re- education,Patient/Caregiver Education,Self-Care/Home Management,Sensory Integration ,Soft Tissue Mobilization, Taping,Therapeutic Activities, Therapeutic Exercises Modalities Cold Pack/Ice Massage,Hot Packs Next Visit Focus/Plan Next Note Type Treatment Note Next Visit Plan POC: continue progress exercises over noodle then into strengthening if tolerated. [place] Protocol Next treatment with primary therapist will do progress note
--- NOTE | 2021-05-25 14:16 | PT.OTN ---
Current Diagnoses Pain in left shoulder (05/25/21) Physical Therapy Treatment Note PT-OP-A Visit Information Start: 03/31/21 13:36 Freq: Status: Active Protocol: Document 05/25/21 12:18 MB (Rec: 05/25/21 12:56 MB [id number]) Out-Patient Physical Therapy Visit Information Visit Information Visit Type Progress Note Visit Note Medicare and for Life Visit Start Time 12:18 Visit Stop Time 13:00 Total Visit Minutes 42 Visit Number 10 PT-OP-B Current Condition Start: 03/31/21 13:36 Freq: Status: Active Protocol: Document 04/06/21 10:33 MB (Rec: 04/06/21 10:48 MB [id number]) Current Condition History of Current Condition Onset Date 2.5 months ago Current Complaints Left arm pain when moving it certain ways and difficulty using it History of Current Condition Pt was reading in bed with her cat under the crook of her left arm and she went to lift her left arm and got sharp pain in her upper arm. Since then, it is about the same. She has been taking advil. She reports she is fine unless she does something it doesn' t like. Reaching up and reaching across with her left arm is difficult. She gets shooting pain. Reaching out and back is also troublesome. She is right handed. She has been going through a lot of grief after spouse and dog and another loved one's within several months of each other. She usually feels tension in her neck. She has trouble with the gardening and using hedge clippers and she duncan through. Pt cannot fasten her bra behind her back. The [facility] for her passing is 04/15/21 and she is just wanting to get through it. She was doing osteoporosis exercises before the left shoulder bothered her and she is asking about these. Pt reports 2/10 left shoulder pain. Prior Treatments and Tests Pt had PT in the past for plantar fasciitis and it went well, she responded well to massage therapy in the past, PT for her neck and back. She had a C3-4 issue and it got better with PT. Treatment Goals Patient/Caregiver Goals To improve left shoulder range and pain PT-OP-C Subjective Start: 03/31/21 13:36 Freq: Status: Active Protocol: Document 05/25/21 12:18 MB (Rec: 05/25/21 12:56 MB [id number]) OP-PT Subjective Patient Comments Patient Comments Pt reports that since starting PT, her pain and range of motion are better. She likes the UBE. PT-OP-J Posture/Palpation/Skin Start: 03/31/21 13:36 Freq: Status: Active Protocol: Document 04/06/21 10:33 MB (Rec: 04/06/21 13:47 MB [id number]) Posture Evaluation Comments Posture Comments Standing posture: Forward head and rounded shoulders, Dowager's hump, increased lumbar lordosis, anterior tilt pelvis, left shoulder higher than the right, right shoulder blade lower than the left, left iliac crest higher than the right, B knee valgus, supination right ankle and pronation left ankle Palpation: increased tension left upper traps compared to the right PT-OP-K Range of Motion Start: 03/31/21 13:36 Freq: Status: Active Protocol: Document 04/06/21 10:33 MB (Rec: 04/06/21 13:47 MB [id number]) Shoulder Goniometric Range of Motion Shoulder Left Shoulder ROM WFL No Testing Position Standing Flexion 133 Abduction 112 Comments Supine ER and IR with shoulder in 90/90: 15 deg both and pt reports pain in upper arm, capsular pattern Right Shoulder ROM WFL Yes Testing Position Standing Flexion 161 Abduction 145 Comments Supine ER and IR with shoulder in 90/90 is WNLs Elbow/Forearm Range of Motion Elbow/Forearm ROM Limitations Comments B elbows, wrists and hands WNLs PT-OP-M Strength Start: 03/31/21 13:36 Freq: Status: Active Protocol: Document 04/06/21 10:33 MB (Rec: 04/06/21 13:47 MB [id number]) Shoulder Strength Shoulder Manual Muscle Testing Left Comments MMT deferred d/t painful and limited AROM Right Flexion 5 Normal Abduction (C5) 5 Normal External Rotation 5 Normal Internal Rotation 5 Normal Elbow/Forearm Strength Elbow and Forearm Manual Muscle Testing Left Flexion (C6) 5 Normal Extension (C7) 5 Normal Pronation 4 Good Supination 4 Good Right Flexion (C6) 5 Normal Extension (C7) 5 Normal Pronation 4 Good Supination 4 Good Wrist Strength Wrist Manual Muscle Testing Left Flexion (C7) 5 Normal Extension (C6) 5 Normal Right Flexion (C7) 5 Normal Extension (C6) 5 Normal PT-OP-Q Treatments Start: 03/31/21 13:36 Freq: Status: Active Protocol: Document 05/25/21 12:18 MB (Rec: 05/25/21 12:56 MB [id number]) Cardio Equipment Upper Body Ergometer (UBE) Duration (Minutes) 10 Other 1' forward and 1' backward Therapeutic Exercises Supine Exercises FF, scaption TB Supine Exercise Name Practiced these and PNF, pt to con't with these currently Side bilateral Resistance Level 1 band Equipment Used Over purple pool noodle Comments 10 reps of each both arms Standing Exercises shld IR behind back Comments Verbalized this one and pt states that she is not performing at home Scapular retraction and thoracic lift Comments Pt demonstrates scapular retraction with shoulder roll Racquet ball STM Comments Pt is performing upper traps and intrascapular, not infraspinatus MWM Other Exercises Reviewed HEP Comments Performed this today during progress note, see goals PT-OP-T Assessment and Plan Start: 03/31/21 13:36 Freq: Status: Active Protocol: Document 05/25/21 12:18 MB (Rec: 05/25/21 12:56 MB [id number]) Physical Therapy Assessment Rehab Potential Rehabilitation Potential Good Evaluation Complexity Number of Personal Factors/Comorbidities 1-2 Number of Body Systems Impaired 1-2 Clinical Presentation at Evaluation Stable Impairments Impairments Activity Tolerance,Functional Activities,Functional Mobility ,Pain,Posture,ROM,Soft Tissue Mobility,Strength Other Impairments Personal factors include grief process and stress after 's passing and upcoming graveside service (many months after his passing), pt lives alone. Body systems affected include psychosocial stressors on her body, musculoskeletal and neuromuscular. Her clinical presentation is currently stable. Goals 5 Dealership General Manager Goal (LTG) Pt will present with left shoulder flexion, abduction, ER and IR strength to 5/5 to improve functional strength by 07/25/21. LTG Duration 8 weeks 4 Dealership General Manager Goal (LTG) Pt will perform progressive HEP with I including ROM, postural, flexibility and strengthening exercises to improve function and pain by . 05/25/21: Pt states that she is doing racquet ball massage, shoulder rolls and scapular retraction, she is lying over pool noodle and performing cane exercises, posterior capsule and pect stretches. She is performing PNF type exercise in supine. LTG Duration 8 weeks 3 Senior Care Goal (LTG) Pt will be able to don bra behind her back to improve I with ADLs by 07/25/21. 05/25/21: Pt is still donning bra in front LTG Duration 8 weeks 2 Senior Care Goal (LTG) Pt will present with improved AROM left shoulder flexion and abduction equal to right shoulder to improve ability to perform overhead tasks by . 05/25/21: Left shoulder flexion and abduction is 95% that of the right. She has discomfort with lowering arm. IR behind the back is 1 lower left compared to right and right thumb reaches top of bra strap and left thumb reaches lower bra strap. LTG Duration 8 weeks 1 Dealership General Manager Goal (LTG) Pt will present with an improved QuickDASH score reflecting no more than 10% impairment to allow return to normal ADLs and IADLs by . 05/25/21: QuickDASH score reflects 29.54% impairment LTG Duration 8 weeks Assessment Summary Assessment Pt has progressed towards all PT goals since starting PT and these include AROM and performance of HEP. She is not yet donning bra behind her back and has not been practicing IR in standing and will re-ed pt on this in future treatments. Pt will benefit from ongoing PT to improve strength, pain and functional use of left arm. Physical Therapy Plan Frequency and Duration Frequency of Treatment 1-2x/wk Duration of Treatment 8 weeks Plan of Care Start Date 05/25/21 Plan of Care End Date 07/25/21 Therapeutic Interventions Therapeutic Interventions Balance Training,Canalithic Repositioning,Coordination Training,Home Exercise Program ,Joint Mobilizations,Manual Therapy,Neuromuscular Re- education,Patient/Caregiver Education,Self-Care/Home Management,Sensory Integration ,Soft Tissue Mobilization, Taping,Therapeutic Activities, Therapeutic Exercises Modalities Cold Pack/Ice Massage,Hot Packs Next Visit Focus/Plan Next Note Type Treatment Note Next Visit Plan Revised exercises including band exercises and write out list for patient, towel roll behind back. Progress shoulder ER, abduction, flexion with theraband while lying over pool noodle
--- NOTE | 2021-05-25 14:16 | PT.OPPOC ---
Physical, Occupational & Speech Therapy At [facility] Current Diagnoses Pain in left shoulder (05/25/21) Visit Care Team Role Provider Type JUVENAL Campos Attending Provider Advanced Bar Welder Family Provider Primary Care Provider Referring Provider Specialty: Family Practice Address: [address] [place] [address], [facility] [place], [address] Email: [email or web address] Plan Of Care PT-OP-T Assessment and Plan Start: 03/31/21 13:36 Freq: Status: Active Protocol: Document 05/25/21 12:18 MB (Rec: 05/25/21 12:56 MB [id number]) Physical Therapy Assessment Rehab Potential Rehabilitation Potential Good Evaluation Complexity Number of Personal Factors/Comorbidities 1-2 Number of Body Systems Impaired 1-2 Clinical Presentation at Evaluation Stable Impairments Impairments Activity Tolerance,Functional Activities,Functional Mobility ,Pain,Posture,ROM,Soft Tissue Mobility,Strength Other Impairments Personal factors include grief process and stress after 's passing and upcoming graveside service (many months after his passing), pt lives alone. Body systems affected include psychosocial stressors on her body, musculoskeletal and neuromuscular. Her clinical presentation is currently stable. Goals 5 Internal Controls Consultant Goal (LTG) Pt will present with left shoulder flexion, abduction, ER and IR strength to 5/5 to improve functional strength by 07/25/21. LTG Duration 8 weeks 4 [facility] Goal (LTG) Pt will perform progressive HEP with I including ROM, postural, flexibility and strengthening exercises to improve function and pain by . 05/25/21: Pt states that she is doing racquet ball massage, shoulder rolls and scapular retraction, she is lying over pool noodle and performing cane exercises, posterior capsule and pect stretches. She is performing PNF type exercise in supine. LTG Duration 8 weeks 3 Internal Controls Consultant Goal (LTG) Pt will be able to don bra behind her back to improve I with ADLs by 07/25/21. 05/25/21: Pt is still donning bra in front LTG Duration 8 weeks 2 Mcc Goal (LTG) Pt will present with improved AROM left shoulder flexion and abduction equal to right shoulder to improve ability to perform overhead tasks by . 05/25/21: Left shoulder flexion and abduction is 95% that of the right. She has discomfort with lowering arm. IR behind the back is 1 lower left compared to right and right thumb reaches top of bra strap and left thumb reaches lower bra strap. LTG Duration 8 weeks 1 Internal Controls Consultant Goal (LTG) Pt will present with an improved QuickDASH score reflecting no more than 10% impairment to allow return to normal ADLs and IADLs by . 05/25/21: QuickDASH score reflects 29.54% impairment LTG Duration 8 weeks Assessment Summary Assessment Pt has progressed towards all PT goals since starting PT and these include AROM and performance of HEP. She is not yet donning bra behind her back and has not been practicing IR in standing and will re-ed pt on this in future treatments. Pt will benefit from ongoing PT to improve strength, pain and functional use of left arm. Physical Therapy Plan Frequency and Duration Frequency of Treatment 1-2x/wk Duration of Treatment 8 weeks Plan of Care Start Date 05/25/21 Plan of Care End Date 07/25/21 Therapeutic Interventions Therapeutic Interventions Balance Training,Canalithic Repositioning,Coordination Training,Home Exercise Program ,Joint Mobilizations,Manual Therapy,Neuromuscular Re- education,Patient/Caregiver Education,Self-Care/Home Management,Sensory Integration ,Soft Tissue Mobilization, Taping,Therapeutic Activities, Therapeutic Exercises Modalities Cold Pack/Ice Massage,Hot Packs Next Visit Focus/Plan Next Note Type Treatment Note Next Visit Plan Revised exercises including band exercises and write out list for patient, towel roll behind back. Progress shoulder ER, abduction, flexion with theraband while lying over pool noodle Plan of Care Dates Plan of Care Start Date 05/25/21 Plan of Care End Date 07/25/21 Electronically Signed by: Jennifer Arias, PT 05/25/21 [id number] Please Sign and Return: I have reviewed this Plan of Care and certify that the skilled therapy services above are required to meet the patient?s needs. Physician Signature Date Printed Name and Credentials Clinical Instructor Signature Printed Name and Credentials
--- NOTE | 2021-06-08 14:34 | PT.OTN ---
Current Diagnoses Pain in left shoulder (06/08/21) Physical Therapy Treatment Note PT-OP-A Visit Information Start: 03/31/21 13:36 Freq: Status: Active Protocol: Document 06/08/21 13:45 MB (Rec: 06/08/21 14:19 MB [id number]) Out-Patient Physical Therapy Visit Information Visit Information Visit Type Treatment Note Visit Note Medicare and for Life Visit Start Time 13:45 Visit Stop Time 14:30 Total Visit Minutes 45 Visit Number 11 PT-OP-B Current Condition Start: 03/31/21 13:36 Freq: Status: Active Protocol: Document 04/06/21 10:33 MB (Rec: 04/06/21 10:48 MB [id number]) Current Condition History of Current Condition Onset Date 2.5 months ago Current Complaints Left arm pain when moving it certain ways and difficulty using it History of Current Condition Pt was reading in bed with her cat under the crook of her left arm and she went to lift her left arm and got sharp pain in her upper arm. Since then, it is about the same. She has been taking advil. She reports she is fine unless she does something it doesn' t like. Reaching up and reaching across with her left arm is difficult. She gets shooting pain. Reaching out and back is also troublesome. She is right handed. She has been going through a lot of grief after spouse and dog and another loved one's within several months of each other. She usually feels tension in her neck. She has trouble with the gardening and using hedge clippers and she duncan through. Pt cannot fasten her bra behind her back. The [facility] for her passing is 04/15/21 and she is just wanting to get through it. She was doing osteoporosis exercises before the left shoulder bothered her and she is asking about these. Pt reports 2/10 left shoulder pain. Prior Treatments and Tests Pt had PT in the past for plantar fasciitis and it went well, she responded well to massage therapy in the past, PT for her neck and back. She had a C3-4 issue and it got better with PT. Treatment Goals Patient/Caregiver Goals To improve left shoulder range and pain PT-OP-C Subjective Start: 03/31/21 13:36 Freq: Status: Active Protocol: Document 06/08/21 13:45 MB (Rec: 06/08/21 14:19 MB [id number]) OP-PT Subjective Patient Comments Patient Comments Pt states that she got a new car. PT-OP-J Posture/Palpation/Skin Start: 03/31/21 13:36 Freq: Status: Active Protocol: Document 04/06/21 10:33 MB (Rec: 04/06/21 13:47 MB [id number]) Posture Evaluation Comments Posture Comments Standing posture: Forward head and rounded shoulders, Dowager's hump, increased lumbar lordosis, anterior tilt pelvis, left shoulder higher than the right, right shoulder blade lower than the left, left iliac crest higher than the right, B knee valgus, supination right ankle and pronation left ankle Palpation: increased tension left upper traps compared to the right PT-OP-K Range of Motion Start: 03/31/21 13:36 Freq: Status: Active Protocol: Document 04/06/21 10:33 MB (Rec: 04/06/21 13:47 MB [id number]) Shoulder Goniometric Range of Motion Shoulder Left Shoulder ROM WFL No Testing Position Standing Flexion 133 Abduction 112 Comments Supine ER and IR with shoulder in 90/90: 15 deg both and pt reports pain in upper arm, capsular pattern Right Shoulder ROM WFL Yes Testing Position Standing Flexion 161 Abduction 145 Comments Supine ER and IR with shoulder in 90/90 is WNLs Elbow/Forearm Range of Motion Elbow/Forearm ROM Limitations Comments B elbows, wrists and hands WNLs PT-OP-M Strength Start: 03/31/21 13:36 Freq: Status: Active Protocol: Document 04/06/21 10:33 MB (Rec: 04/06/21 13:47 MB [id number]) Shoulder Strength Shoulder Manual Muscle Testing Left Comments MMT deferred d/t painful and limited AROM Right Flexion 5 Normal Abduction (C5) 5 Normal External Rotation 5 Normal Internal Rotation 5 Normal Elbow/Forearm Strength Elbow and Forearm Manual Muscle Testing Left Flexion (C6) 5 Normal Extension (C7) 5 Normal Pronation 4 Good Supination 4 Good Right Flexion (C6) 5 Normal Extension (C7) 5 Normal Pronation 4 Good Supination 4 Good Wrist Strength Wrist Manual Muscle Testing Left Flexion (C7) 5 Normal Extension (C6) 5 Normal Right Flexion (C7) 5 Normal Extension (C6) 5 Normal PT-OP-Q Treatments Start: 03/31/21 13:36 Freq: Status: Active Protocol: Document 06/08/21 13:45 MB (Rec: 06/08/21 14:19 MB [id number]) Cardio Equipment Upper Body Ergometer (UBE) Duration (Minutes) 13 Other 1' forward and 1' backward Therapeutic Exercises Supine Exercises ER and abduction with band Side bilateral Comments Level 1 band, purple pool noodle, 10 reps Standing Exercises Standing IR Side left Comments Use of towel roll behind back Manual Therapy Treatment Other Other Manual Treatments Left shoulder [place] protocol and PA mobs with left shoulder in IR and ER in prone and ER in supine PT-OP-T Assessment and Plan Start: 03/31/21 13:36 Freq: Status: Active Protocol: Document 06/08/21 13:45 MB (Rec: 06/08/21 14:19 MB [id number]) Physical Therapy Assessment Rehab Potential Rehabilitation Potential Good Evaluation Complexity Number of Personal Factors/Comorbidities 1-2 Number of Body Systems Impaired 1-2 Clinical Presentation at Evaluation Stable Impairments Impairments Activity Tolerance,Functional Activities,Functional Mobility ,Pain,Posture,ROM,Soft Tissue Mobility,Strength Other Impairments Personal factors include grief process and stress after 's passing and upcoming graveside service (many months after his passing), pt lives alone. Body systems affected include psychosocial stressors on her body, musculoskeletal and neuromuscular. Her clinical presentation is currently stable. Goals 5 Airline Stewardess Goal (LTG) Pt will present with left shoulder flexion, abduction, ER and IR strength to 5/5 to improve functional strength by 07/25/21. LTG Duration 8 weeks 4 Usp Goal (LTG) Pt will perform progressive HEP with I including ROM, postural, flexibility and strengthening exercises to improve function and pain by . 05/25/21: Pt states that she is doing racquet ball massage, shoulder rolls and scapular retraction, she is lying over pool noodle and performing cane exercises, posterior capsule and pect stretches. She is performing PNF type exercise in supine. LTG Duration 8 weeks 3 Usp Goal (LTG) Pt will be able to don bra behind her back to improve I with ADLs by 07/25/21. 06/08/21: Pt reports that she is able to don her bra behind her back. LTG Duration Met 2 Airline Stewardess Goal (LTG) Pt will present with improved AROM left shoulder flexion and abduction equal to right shoulder to improve ability to perform overhead tasks by . 05/25/21: Left shoulder flexion and abduction is 95% that of the right. She has discomfort with lowering arm. IR behind the back is 1 lower left compared to right and right thumb reaches top of bra strap and left thumb reaches lower bra strap. LTG Duration 8 weeks 1 Airline Stewardess Goal (LTG) Pt will present with an improved QuickDASH score reflecting no more than 10% impairment to allow return to normal ADLs and IADLs by . 05/25/21: QuickDASH score reflects 29.54% impairment LTG Duration 8 weeks Assessment Summary Assessment Progressed range and strengthening today and pt performs well. Manual work as well. Physical Therapy Plan Frequency and Duration Frequency of Treatment 1-2x/wk Duration of Treatment 8 weeks Plan of Care Start Date 05/25/21 Plan of Care End Date 07/25/21 Therapeutic Interventions Therapeutic Interventions Balance Training,Canalithic Repositioning,Coordination Training,Home Exercise Program ,Joint Mobilizations,Manual Therapy,Neuromuscular Re- education,Patient/Caregiver Education,Self-Care/Home Management,Sensory Integration ,Soft Tissue Mobilization, Taping,Therapeutic Activities, Therapeutic Exercises Modalities Cold Pack/Ice Massage,Hot Packs Next Visit Focus/Plan Next Note Type Treatment Note Next Visit Plan Revise exercises and write out for patient
--- NOTE | 2021-06-16 14:30 | PT.OTN ---
Current Diagnoses Pain in left shoulder (06/16/21) Physical Therapy Treatment Note PT-OP-A Visit Information Start: 03/31/21 13:36 Freq: Status: Active Protocol: Document 06/16/21 14:02 MB (Rec: 06/16/21 14:30 MB [id number]) Out-Patient Physical Therapy Visit Information Visit Information Visit Type Treatment Note Visit Note Medicare and for Life Visit Start Time 14:02 Visit Stop Time 14:30 Total Visit Minutes 28 Visit Number 12 PT-OP-B Current Condition Start: 03/31/21 13:36 Freq: Status: Active Protocol: Document 04/06/21 10:33 MB (Rec: 04/06/21 10:48 MB [id number]) Current Condition History of Current Condition Onset Date 2.5 months ago Current Complaints Left arm pain when moving it certain ways and difficulty using it History of Current Condition Pt was reading in bed with her cat under the crook of her left arm and she went to lift her left arm and got sharp pain in her upper arm. Since then, it is about the same. She has been taking advil. She reports she is fine unless she does something it doesn' t like. Reaching up and reaching across with her left arm is difficult. She gets shooting pain. Reaching out and back is also troublesome. She is right handed. She has been going through a lot of grief after spouse and dog and another loved one's within several months of each other. She usually feels tension in her neck. She has trouble with the gardening and using hedge clippers and she duncan through. Pt cannot fasten her bra behind her back. The [facility] for her passing is 04/15/21 and she is just wanting to get through it. She was doing osteoporosis exercises before the left shoulder bothered her and she is asking about these. Pt reports 2/10 left shoulder pain. Prior Treatments and Tests Pt had PT in the past for plantar fasciitis and it went well, she responded well to massage therapy in the past, PT for her neck and back. She had a C3-4 issue and it got better with PT. Treatment Goals Patient/Caregiver Goals To improve left shoulder range and pain PT-OP-C Subjective Start: 03/31/21 13:36 Freq: Status: Active Protocol: Document 06/16/21 14:02 MB (Rec: 06/16/21 14:30 MB [id number]) OP-PT Subjective Patient Comments Patient Comments Pt is late to appointment. She left exercises at home. Pt reached up into the cabinet the other day and then had a sharp catching in the front of the left arm when lowering the arm down. She shook it out and then it didn't happen again. PT-OP-J Posture/Palpation/Skin Start: 03/31/21 13:36 Freq: Status: Active Protocol: Document 04/06/21 10:33 MB (Rec: 04/06/21 13:47 MB [id number]) Posture Evaluation Comments Posture Comments Standing posture: Forward head and rounded shoulders, Dowager's hump, increased lumbar lordosis, anterior tilt pelvis, left shoulder higher than the right, right shoulder blade lower than the left, left iliac crest higher than the right, B knee valgus, supination right ankle and pronation left ankle Palpation: increased tension left upper traps compared to the right PT-OP-K Range of Motion Start: 03/31/21 13:36 Freq: Status: Active Protocol: Document 04/06/21 10:33 MB (Rec: 04/06/21 13:47 MB [id number]) Shoulder Goniometric Range of Motion Shoulder Left Shoulder ROM WFL No Testing Position Standing Flexion 133 Abduction 112 Comments Supine ER and IR with shoulder in 90/90: 15 deg both and pt reports pain in upper arm, capsular pattern Right Shoulder ROM WFL Yes Testing Position Standing Flexion 161 Abduction 145 Comments Supine ER and IR with shoulder in 90/90 is WNLs Elbow/Forearm Range of Motion Elbow/Forearm ROM Limitations Comments B elbows, wrists and hands WNLs PT-OP-M Strength Start: 03/31/21 13:36 Freq: Status: Active Protocol: Document 04/06/21 10:33 MB (Rec: 04/06/21 13:47 MB [id number]) Shoulder Strength Shoulder Manual Muscle Testing Left Comments MMT deferred d/t painful and limited AROM Right Flexion 5 Normal Abduction (C5) 5 Normal External Rotation 5 Normal Internal Rotation 5 Normal Elbow/Forearm Strength Elbow and Forearm Manual Muscle Testing Left Flexion (C6) 5 Normal Extension (C7) 5 Normal Pronation 4 Good Supination 4 Good Right Flexion (C6) 5 Normal Extension (C7) 5 Normal Pronation 4 Good Supination 4 Good Wrist Strength Wrist Manual Muscle Testing Left Flexion (C7) 5 Normal Extension (C6) 5 Normal Right Flexion (C7) 5 Normal Extension (C6) 5 Normal PT-OP-Q Treatments Start: 03/31/21 13:36 Freq: Status: Active Protocol: Document 06/16/21 14:02 MB (Rec: 06/16/21 14:30 MB [id number]) Cardio Equipment Upper Body Ergometer (UBE) Duration (Minutes) 10 Other 1' forward and 1' backward Manual Therapy Treatment Other Other Manual Treatments Left shoulder [place] Protocol today PT-OP-T Assessment and Plan Start: 03/31/21 13:36 Freq: Status: Active Protocol: Document 06/16/21 14:02 MB (Rec: 06/16/21 14:30 MB [id number]) Physical Therapy Assessment Rehab Potential Rehabilitation Potential Good Evaluation Complexity Number of Personal Factors/Comorbidities 1-2 Number of Body Systems Impaired 1-2 Clinical Presentation at Evaluation Stable Impairments Impairments Activity Tolerance,Functional Activities,Functional Mobility ,Pain,Posture,ROM,Soft Tissue Mobility,Strength Other Impairments Personal factors include grief process and stress after 's passing and upcoming graveside service (many months after his passing), pt lives alone. Body systems affected include psychosocial stressors on her body, musculoskeletal and neuromuscular. Her clinical presentation is currently stable. Goals 5 Long-Term Goal (LTG) Pt will present with left shoulder flexion, abduction, ER and IR strength to 5/5 to improve functional strength by 07/25/21. LTG Duration 8 weeks 4 Long-Term Goal (LTG) Pt will perform progressive HEP with I including ROM, postural, flexibility and strengthening exercises to improve function and pain by . 05/25/21: Pt states that she is doing racquet ball massage, shoulder rolls and scapular retraction, she is lying over pool noodle and performing cane exercises, posterior capsule and pect stretches. She is performing PNF type exercise in supine. LTG Duration 8 weeks 3 Long-Term Goal (LTG) Pt will be able to don bra behind her back to improve I with ADLs by 07/25/21. 06/08/21: Pt reports that she is able to don her bra behind her back. LTG Duration Met 2 Long-Term Goal (LTG) Pt will present with improved AROM left shoulder flexion and abduction equal to right shoulder to improve ability to perform overhead tasks by . 05/25/21: Left shoulder flexion and abduction is 95% that of the right. She has discomfort with lowering arm. IR behind the back is 1 lower left compared to right and right thumb reaches top of bra strap and left thumb reaches lower bra strap. LTG Duration 8 weeks 1 Long-Term Goal (LTG) Pt will present with an improved QuickDASH score reflecting no more than 10% impairment to allow return to normal ADLs and IADLs by . 05/25/21: QuickDASH score reflects 29.54% impairment LTG Duration 8 weeks Assessment Summary Assessment Pt is late to appointment and so DAVID and suzanna work only today. She will bring exercises next treatment date and she has a body blade at home already and will bring in . Physical Therapy Plan Frequency and Duration Frequency of Treatment 1-2x/wk Duration of Treatment 8 weeks Plan of Care Start Date 05/25/21 Plan of Care End Date 07/25/21 Therapeutic Interventions Therapeutic Interventions Balance Training,Canalithic Repositioning,Coordination Training,Home Exercise Program ,Joint Mobilizations,Manual Therapy,Neuromuscular Re- education,Patient/Caregiver Education,Self-Care/Home Management,Sensory Integration ,Soft Tissue Mobilization, Taping,Therapeutic Activities, Therapeutic Exercises Modalities Cold Pack/Ice Massage,Hot Packs Next Visit Focus/Plan Next Note Type Treatment Note Next Visit Plan Body blade, Revise exercises and write out for patient, consider scapular retraction and shoulder extension with band
--- NOTE | 2021-06-22 12:57 | PT.OTN ---
Current Diagnoses Pain in left shoulder (06/22/21) Physical Therapy Treatment Note PT-OP-A Visit Information Start: 03/31/21 13:36 Freq: Status: Active Protocol: Document 06/22/21 12:16 MB (Rec: 06/22/21 12:57 MB [id number]) Out-Patient Physical Therapy Visit Information Visit Information Visit Type Treatment Note Visit Start Time 12:16 Visit Stop Time 12:54 Total Visit Minutes 38 Visit Number 13 PT-OP-B Current Condition Start: 03/31/21 13:36 Freq: Status: Active Protocol: Document 04/06/21 10:33 MB (Rec: 04/06/21 10:48 MB [id number]) Current Condition History of Current Condition Onset Date 2.5 months ago Current Complaints Left arm pain when moving it certain ways and difficulty using it History of Current Condition Pt was reading in bed with her cat under the crook of her left arm and she went to lift her left arm and got sharp pain in her upper arm. Since then, it is about the same. She has been taking advil. She reports she is fine unless she does something it doesn' t like. Reaching up and reaching across with her left arm is difficult. She gets shooting pain. Reaching out and back is also troublesome. She is right handed. She has been going through a lot of grief after spouse and dog and another loved one's within several months of each other. She usually feels tension in her neck. She has trouble with the gardening and using hedge clippers and she duncan through. Pt cannot fasten her bra behind her back. The [facility] for her passing is 04/15/21 and she is just wanting to get through it. She was doing osteoporosis exercises before the left shoulder bothered her and she is asking about these. Pt reports 2/10 left shoulder pain. Prior Treatments and Tests Pt had PT in the past for plantar fasciitis and it went well, she responded well to massage therapy in the past, PT for her neck and back. She had a C3-4 issue and it got better with PT. Treatment Goals Patient/Caregiver Goals To improve left shoulder range and pain PT-OP-C Subjective Start: 03/31/21 13:36 Freq: Status: Active Protocol: Document 06/22/21 12:16 MB (Rec: 06/22/21 12:57 MB [id number]) OP-PT Subjective Patient Comments Patient Comments Pt runs out to car to get her exercises. PT-OP-J Posture/Palpation/Skin Start: 03/31/21 13:36 Freq: Status: Active Protocol: Document 04/06/21 10:33 MB (Rec: 04/06/21 13:47 MB [id number]) Posture Evaluation Comments Posture Comments Standing posture: Forward head and rounded shoulders, Dowager's hump, increased lumbar lordosis, anterior tilt pelvis, left shoulder higher than the right, right shoulder blade lower than the left, left iliac crest higher than the right, B knee valgus, supination right ankle and pronation left ankle Palpation: increased tension left upper traps compared to the right PT-OP-K Range of Motion Start: 03/31/21 13:36 Freq: Status: Active Protocol: Document 04/06/21 10:33 MB (Rec: 04/06/21 13:47 MB [id number]) Shoulder Goniometric Range of Motion Shoulder Left Shoulder ROM WFL No Testing Position Standing Flexion 133 Abduction 112 Comments Supine ER and IR with shoulder in 90/90: 15 deg both and pt reports pain in upper arm, capsular pattern Right Shoulder ROM WFL Yes Testing Position Standing Flexion 161 Abduction 145 Comments Supine ER and IR with shoulder in 90/90 is WNLs Elbow/Forearm Range of Motion Elbow/Forearm ROM Limitations Comments B elbows, wrists and hands WNLs PT-OP-M Strength Start: 03/31/21 13:36 Freq: Status: Active Protocol: Document 04/06/21 10:33 MB (Rec: 04/06/21 13:47 MB [id number]) Shoulder Strength Shoulder Manual Muscle Testing Left Comments MMT deferred d/t painful and limited AROM Right Flexion 5 Normal Abduction (C5) 5 Normal External Rotation 5 Normal Internal Rotation 5 Normal Elbow/Forearm Strength Elbow and Forearm Manual Muscle Testing Left Flexion (C6) 5 Normal Extension (C7) 5 Normal Pronation 4 Good Supination 4 Good Right Flexion (C6) 5 Normal Extension (C7) 5 Normal Pronation 4 Good Supination 4 Good Wrist Strength Wrist Manual Muscle Testing Left Flexion (C7) 5 Normal Extension (C6) 5 Normal Right Flexion (C7) 5 Normal Extension (C6) 5 Normal PT-OP-Q Treatments Start: 03/31/21 13:36 Freq: Status: Active Protocol: Document 06/22/21 12:16 MB (Rec: 06/22/21 12:57 MB [id number]) Cardio Equipment Upper Body Ergometer (UBE) Duration (Minutes) 11 Other 1' forward and 1' backward Therapeutic Exercises Standing Exercises Scapular retraction with elbow extension Side bilateral Equipment Used Level 2 band Comments 5 reps slowly, core engaged Body Blade Standing Exercise Name Classic Body Blade today Side left Comments Dynamic abduction and adduction, flexion, extension Racquet ball STM Standing Exercise Name Performed infraspinatus MWM today Side left Comments TrP hold with racquet ball and active ER and IR Other Exercises Reviewed HEP Comments Reviewed all handouts with pt today PT-OP-T Assessment and Plan Start: 03/31/21 13:36 Freq: Status: Active Protocol: Document 06/22/21 12:16 MB (Rec: 06/22/21 12:57 MB [id number]) Physical Therapy Assessment Rehab Potential Rehabilitation Potential Good Evaluation Complexity Number of Personal Factors/Comorbidities 1-2 Number of Body Systems Impaired 1-2 Clinical Presentation at Evaluation Stable Impairments Impairments Activity Tolerance,Functional Activities,Functional Mobility ,Pain,Posture,ROM,Soft Tissue Mobility,Strength Other Impairments Personal factors include grief process and stress after 's passing and upcoming graveside service (many months after his passing), pt lives alone. Body systems affected include psychosocial stressors on her body, musculoskeletal and neuromuscular. Her clinical presentation is currently stable. Goals 5 Digital Media Specialist Goal (LTG) Pt will present with left shoulder flexion, abduction, ER and IR strength to 5/5 to improve functional strength by 07/25/21. 06/22/21: Left shoulder flexion , abduction and ER and IR are 5/5 in available range LTG Duration Met 4 Digital Media Specialist Goal (LTG) Pt will perform progressive HEP with I including ROM, postural, flexibility and strengthening exercises to improve function and pain by . 06/22/21: Pt states that she is doing racquet ball massage, shoulder rolls and scapular retraction, she is lying over pool noodle and performing cane exercises, posterior capsule and pect stretches. She is also performing shoulder flexion, shoulder ER, shoulder abduction with band for strengthening. Pt is performing IR with towel behind back. She is performing open book with elbows bent. LTG Duration Met 3 Digital Media Specialist Goal (LTG) Pt will be able to don bra behind her back to improve I with ADLs by 07/25/21. 06/08/21: Pt reports that she is able to don her bra behind her back. LTG Duration Met 2 Digital Media Specialist Goal (LTG) Pt will present with improved AROM left shoulder flexion and abduction equal to right shoulder to improve ability to perform overhead tasks by . 06/22/21: B flexion is equal, left abduction is 95% compared to the right with some discomfort, IR behind the back is about 1/2 below where the right is LTG Duration Partially met 1 Shelter Goal (LTG) Pt will present with an improved QuickDASH score reflecting no more than 10% impairment to allow return to normal ADLs and IADLs by . 06/22/21: QuickDASH score reflects 20.45% impairment LTG Duration Partially met Assessment Summary Assessment Pt has met strength, HEP and ability to don bra behind back goals. She has progressed towards AROM and QuickDASH scores. She is ready to d/c with ongoing performance of HEP. Did tell pt that if she has any trouble with pain or range in the future, coming back to PT is an option. Will d/c PT.
== END 2021-06-26 10:22 | disposition home or self-care (01) ==
LOC: PHYS 12:15
PROVIDERS: Family Provider Internal Medicine; PCP Internal Medicine; Referring Provider Internal Medicine; Visit Provider Internal Medicine
DX: M25.512 Pain in left shoulder (principal)
CPT/HCPCS: 97110; 97140; 97161; 97535

== ENCOUNTER → 2021-11-09 11:11 | Outpatient (CLI) | payer MEDICARE, OTHER, SELFPAY ==
--- NOTE | 2021-11-09 11:14 | DI.MG.S_ITS ---
BILATERAL DIGITAL SCREENING MAMMOGRAM 3D/2D WITH CAD: 11/09/2021 CLINICAL: Routine screening. Family history of breast cancer. Comparison is made to exams dated: 10/21/2020 mammogram, 08/31/2019 mammogram, and 07/18/2018 mammogram - [facility]. The tissue of both breasts is heterogeneously dense. This may lower the sensitivity of mammography. Current study was also evaluated with a Computer Aided Detection (CAD) system. There are benign calcifications in both breasts. No significant masses, calcifications, or other findings are seen in either breast. There has been no significant interval change. IMPRESSION: BENIGN There is no mammographic evidence of malignancy. A 1 year screening mammogram is recommended. This exam was interpreted at Station ID: [id number]. NOTE: For mammograms, a report in lay terms will be sent to the patient. Approximately 15% of breast malignancies will not be visualized mammographically. In the management of a palpable breast mass, a negative mammogram must not discourage biopsy of a clinically suspicious lesion. Electronically Signed By: Brent Dailey acr/penrad:11/09/2021 15:26:50 letter sent: Normal Exam ACR BI-RADS Category 2: Benign Finding(s) 3342F
== END ==
PROVIDERS: Family Provider Internal Medicine; PCP Internal Medicine; Referring Provider Internal Medicine; Visit Provider Internal Medicine
DX: Z12.31 Encounter for screening mammogram for malignant neoplasm of breast; Z13.820 Encounter for screening for osteoporosis; Z80.3 Family history of malignant neoplasm of breast; Z78.0 Asymptomatic menopausal state; E07.9 Disorder of thyroid, unspecified; Z82.62 Family history of osteoporosis; Z87.891 Personal history of nicotine dependence
CPT/HCPCS: 77063; 77067; 77080